=== PATIENT | male | born 1960 | race Asian ===

== ENCOUNTER → 2016-12-13 | Outpatient (CLI) | payer MEDICARE, OTHER ==
[~2016-12-13] MED LIST: AMLO2.5T PO; ASPI81 PO; ATOR20TA86 PO; CINN500C4 PO; FERR-89 PO; FISH1CAP49 PO; METO-323 PO; REPA2 PO; SEVEC800 PO; VITAD1000 PO
[2016-12-13 09:11] LABS: BASOPHILS % (AUTO) 0.5 % (0.0-2.0); EOSINOPHILS % (AUTO) 6.8 % (1.0-6.0); HEMATOCRIT 37.7 % (41-53); HEMOGLOBIN 12.2 g/dL (13.5-17.5); LYMPHOCYTES % (AUTO) 20.5 % (22.0-44.0); MEAN CORPUSCULAR HEMOGLOBIN 33.5 pg (26.0-34.0); MEAN CORPUSCULAR HGB CONC 32.3 G/dL (31.0-37.0); MEAN CORPUSCULAR VOLUME 104 fL (80-100); MONOCYTES # (AUTO) 0.4 K/uL (0.1-1.0); NEUTROPHILS # (AUTO) 3.1 K/uL (1.8-7.7); NEUTROPHILS % (AUTO) 64.2 % (40.0-70.0); PLATELET COUNT (AUTO) 166 K/uL (150-450); RED BLOOD CELL COUNT(AUTO) 3.64 MIL/uL (4.50-5.90); RED CELL DISTRIBUTION WIDTH 15.3 % (11.5-14.5); WHITE BLOOD COUNT (AUTO) 4.8 K/uL (4.5-11.0)
[2016-12-13 09:12] LABS: RBC MORPHOLOGY COMMENT ABNORMAL RBC MORPH
[2016-12-13 09:37] LABS: HEMOGLOBIN A1C 7.3 % (4.5-6.2)
[2016-12-13 09:43] LABS: ALBUMIN 3.9 g/dL (3.4-5.0); BILIRUBIN,TOTAL 0.8 mg/dL (0.1-1.0); CALCIUM, TOTAL 8.6 mg/dL (8.8-10.5); CHOL/HDL RATIO 1.9 (4.2-7.3); CREATININE 8.92 mg/dL (0.60-1.30); MAGNESIUM 2.9 mg/dL (1.80-2.40); POTASSIUM 4.2 mmol/L (3.5-5.1); THYROID STIMULATING HORMONE 0.94 uIU/mL (0.36-3.74); TOTAL PROTEIN, SERUM 7.8 g/dL (6.4-8.2)
== END | disposition home or self-care (01) ==
LOC: LABPV 08:08
PROVIDERS: ATTEND Internal Medicine Cardiovascular Disease
DX: I11.9 Hypertensive heart disease without heart failure (principal); I50.9 Heart failure, unspecified; E11.8 Type 2 diabetes mellitus with unspecified complications; R73.09 Other abnormal glucose; E55.9 Vitamin D deficiency, unspecified
CPT/HCPCS: 82306; 83036; 83735; 84439; 84443

== ENCOUNTER → 2017-01-23 | Outpatient (CLI) | payer MEDICARE, OTHER ==
[2017-01-23 12:33] LABS: BASOPHILS % (AUTO) 0.5 % (0.0-2.0); EOSINOPHILS % (AUTO) 5.4 % (1.0-6.0); HEMATOCRIT 37.3 % (41-53); HEMOGLOBIN 11.9 g/dL (13.5-17.5); LYMPHOCYTES % (AUTO) 16.5 % (22.0-44.0); MEAN CORPUSCULAR HEMOGLOBIN 33.7 pg (26.0-34.0); MEAN CORPUSCULAR HGB CONC 31.8 G/dL (31.0-37.0); MEAN CORPUSCULAR VOLUME 106 fL (80-100); MONOCYTES # (AUTO) 0.5 K/uL (0.1-1.0); MONOCYTES % (AUTO) 8.9 % (2.0-9.0); NEUTROPHILS % (AUTO) 68.7 % (40.0-70.0); PLATELET COUNT (AUTO) 167 K/uL (150-450); RED BLOOD CELL COUNT(AUTO) 3.52 MIL/uL (4.50-5.90); RED CELL DISTRIBUTION WIDTH 16.8 % (11.5-14.5); WHITE BLOOD COUNT (AUTO) 5.8 K/uL (4.5-11.0)
[2017-01-23 12:41] LABS: RBC MORPHOLOGY COMMENT ABNORMAL RBC MORPH
[2017-01-23 12:50] LABS: BILIRUBIN,TOTAL 0.9 mg/dL (0.1-1.0); CALCIUM, TOTAL 8.2 mg/dL (8.8-10.5); CHOL/HDL RATIO 1.9 (4.2-7.3); CREATININE 7.82 mg/dL (0.60-1.30); POTASSIUM 4.7 mmol/L (3.5-5.1); TOTAL PROTEIN, SERUM 7.5 g/dL (6.4-8.2)
== END | disposition home or self-care (01) ==
LOC: LABPV 10:05
PROVIDERS: ATTEND Family Medicine
DX: I12.0 Hypertensive chronic kidney disease with stage 5 chronic kidney disease or end stage renal disease (principal); E11.22 Type 2 diabetes mellitus with diabetic chronic kidney disease; N18.6 End stage renal disease; I25.10 Atherosclerotic heart disease of native coronary artery without angina pectoris; E26.9 Hyperaldosteronism, unspecified
CPT/HCPCS: 82306

== ENCOUNTER → 2017-02-13 | Outpatient (CLI) | payer MEDICARE, OTHER | END | disposition home or self-care (01) | LOC: RADPV 10:36 | PROVIDERS: ATTEND Internal Medicine Cardiovascular Disease | DX: I11.0 Hypertensive heart disease with heart failure (principal); I50.9 Heart failure, unspecified; J98.11 Atelectasis; E11.8 Type 2 diabetes mellitus with unspecified complications; Z95.1 Presence of aortocoronary bypass graft | CPT/HCPCS: 71020 ==

== ENCOUNTER → 2017-03-29 | Outpatient (CLI) | payer MEDICARE, OTHER ==
[2017-03-29 11:02] LABS: BASOPHILS % (AUTO) 0.8 % (0.0-2.0); EOSINOPHILS % (AUTO) 3.5 % (1.0-6.0); HEMATOCRIT 38.6 % (41-53); LYMPHOCYTES # (AUTO) 1.1 K/uL (1.0-4.8); LYMPHOCYTES % (AUTO) 20.5 % (22.0-44.0); MEAN CORPUSCULAR HEMOGLOBIN 34.7 pg (26.0-34.0); MEAN CORPUSCULAR HGB CONC 33.5 G/dL (31.0-37.0); MEAN CORPUSCULAR VOLUME 103 fL (80-100); MONOCYTES # (AUTO) 0.4 K/uL (0.1-1.0); MONOCYTES % (AUTO) 6.8 % (2.0-9.0); NEUTROPHILS # (AUTO) 3.8 K/uL (1.8-7.7); NEUTROPHILS % (AUTO) 68.4 % (40.0-70.0); PLATELET COUNT (AUTO) 145 K/uL (150-450); RED BLOOD CELL COUNT(AUTO) 3.74 MIL/uL (4.50-5.90); RED CELL DISTRIBUTION WIDTH 14.2 % (11.5-14.5); WHITE BLOOD COUNT (AUTO) 5.5 K/uL (4.5-11.0)
[2017-03-29 11:14] LABS: ALBUMIN 4.3 g/dL (3.4-5.0); BILIRUBIN,TOTAL 0.9 mg/dL (0.1-1.0); CALCIUM, TOTAL 9.1 mg/dL (8.8-10.5); CHOL/HDL RATIO 1.8 (4.2-7.3); CREATININE 8.13 mg/dL (0.60-1.30); POTASSIUM 4.6 mmol/L (3.5-5.1); TOTAL PROTEIN, SERUM 7.6 g/dL (6.4-8.2)
[2017-03-29 17:11] LABS: HEMOGLOBIN A1C 6.5 % (4.5-6.2)
== END | disposition home or self-care (01) ==
LOC: LABPV 08:32
PROVIDERS: ATTEND Family Medicine
DX: E11.22 Type 2 diabetes mellitus with diabetic chronic kidney disease (principal); N18.6 End stage renal disease; D50.8 Other iron deficiency anemias; I25.10 Atherosclerotic heart disease of native coronary artery without angina pectoris
CPT/HCPCS: 83036

== ENCOUNTER 2017-05-23 04:03 | Inpatient (IN) | payer MEDICARE, OTHER ==
[~2017-05-23] VITALS: Ht 170.2 cm; Wt 58.2 kg
[2017-05-23] VITALS (17 sets, daily range): BP systolic 90–135; BP diastolic 43–85
[~2017-05-23 04:03] MED LIST changes: -METO-323 PO; +METO25XL PO
[2017-05-23 04:17] LABS: GLUCOSE,POINT OF CARE 252 MG/DL (70-110)
[2017-05-23 04:57] LABS: BASOPHILS % (AUTO) 0.1 % (0.0-2.0); EOSINOPHILS % (AUTO) 0.1 % (1.0-6.0); LYMPHOCYTES # (AUTO) 0.6 K/uL (1.0-4.8); LYMPHOCYTES % (AUTO) 3.5 % (22.0-44.0); MEAN CORPUSCULAR HEMOGLOBIN 34.2 pg (26.0-34.0); MEAN CORPUSCULAR HGB CONC 33.5 G/dL (31.0-37.0); MEAN CORPUSCULAR VOLUME 102 fL (80-100); MONOCYTES # (AUTO) 0.3 K/uL (0.1-1.0); MONOCYTES % (AUTO) 1.6 % (2.0-9.0); NEUTROPHILS # (AUTO) 17.8 K/uL (1.8-7.7); PLATELET COUNT (AUTO) 285 K/uL (150-450); RED BLOOD CELL COUNT(AUTO) 2.01 MIL/uL (4.50-5.90); RED CELL DISTRIBUTION WIDTH 15.1 % (11.5-14.5); WHITE BLOOD COUNT (AUTO) 18.8 K/uL (4.5-11.0)
[2017-05-23 05:00] LABS: NEUTROPHILS % (AUTO) 94.7 % (40.0-70.0)
[2017-05-23] MEDS ORDERED: ACETAMINOPHEN 500 MG TABLET PO ONE ×2 (05:00→05:45)
[2017-05-23] MEDS ORDERED: PIPERACILLIN/TAZO 3.375 GM/D5W 50 ML IV ONE (05:00)
[2017-05-23] MEDS ORDERED: ONDANSETRON HCL 4 MG/2 ML VIAL IVP ONE (05:00)
[2017-05-23] MEDS ORDERED: SODIUM CHLORIDE 0.9% 1,000 ML IV ONE (05:00)
[2017-05-23 05:02] LABS: HEMOGLOBIN 6.9 g/dL (13.5-17.5)
[2017-05-23 05:03] LABS: HEMATOCRIT 20.5 % (41-53)
[2017-05-23 05:06] LABS: INR 1.4 (0.9-1.1); PROTHROMBIN TIME 14.7 SEC (9.4-11.6)
[2017-05-23 05:09] LABS: ANION GAP 10 mmol/L (8-16); CALCIUM, TOTAL 7.7 mg/dL (8.8-10.5); CARBON DIOXIDE 31 mmol/L (22-29); CHLORIDE 92 mmol/L (98-107); CREATININE 8.38 mg/dL (0.60-1.30); GLOMERULAR FILTR. RATE CALC 7 mL/min (>60); POTASSIUM 3.1 mmol/L (3.5-5.1); SODIUM SERUM 133 mmol/L (136-145); UREA NITROGEN, BLOOD 39 mg/dL (7-18)
[2017-05-23 05:11] LABS: ALANINE AMINOTRANSFERASE 17 U/L (12-78); ASPARTATE AMINOTRANSFERASE 14 U/L (15-37); BILIRUBIN,TOTAL 1.5 mg/dL (0.1-1.0)
[2017-05-23 05:12] LABS: ALBUMIN 2.6 g/dL (3.4-5.0); CREATINE KINASE, TOTAL 54 U/L (39-308); TOTAL PROTEIN, SERUM 6.5 g/dL (6.4-8.2)
[2017-05-23 05:14] LABS: B-TYPE NATRIURETIC PEPTIDE 2100 pg/mL (0-100)
[2017-05-23] MEDS ORDERED: ACETAMINOPHEN 325 MG TABLET PO PRN ×2 (05:30→21:45)
[2017-05-23] MEDS ORDERED: 0.9% SODIUM CHLORIDE 10 ML SYRINGE IVP PRN (05:30)
[2017-05-23] MEDS ORDERED: ONDANSETRON HCL 4 MG/2 ML VIAL IVP PRN (05:30)
[2017-05-23] MEDS ORDERED: CILO100T PO (05:35)
[2017-05-23 05:38] LABS: INFLUENZA TYPE B NEGATIVE FOR TYPE B (NEGATIVE)
[2017-05-23] MEDS ORDERED: DiphenhydrAMINE HCL 25 MG CAPSULE PO ONE (05:45)
[2017-05-23] MEDS ORDERED: SODIUM CHLORIDE 0.9% 500 ML IV ONE (06:05)
[2017-05-23] MEDS ORDERED: SODIUM CHLORIDE 0.9% 100 ML ONE (07:46)
[2017-05-23] MEDS ORDERED: PNEUMOCOCCAL VACCINE POLYVALENT 0.5 ML VIAL [PPSV23] IM ONE (10:30)
[2017-05-23] MEDS: PANTOPRAZOLE SODIUM 40 MG/VIAL IVP SCH ×2 (13:30→20:40)
[2017-05-23] MEDS ORDERED: SODIUM CHLORIDE 0.9% 250 ML IV ONE (13:37)
[2017-05-23 15:42] LABS: ADD UA MICROSCOPIC YES; APPEARANCE,URINE TURBID (CLEAR); GLUCOSE, URINE (UA) 250 mg/dL (NEGATIVE); KETONES,URINE TRACE mg/dL (NEGATIVE); LEUKOCYTE ESTERASE ,URINE MODERATE (NEGATIVE); OCCULT BLOOD,URINE LARGE (NEGATIVE); PH,URINE 5.5 (5.0-8.0); PROTEIN,URINE SEE CONFIRM (NEGATIVE)
[2017-05-23 15:52] LABS: SULFOSALICYLIC ACID,URINE 4+ (Negative)
[2017-05-23 15:54] LABS: SQUAMOUS EPITHELIAL CELL,UR Few /LPF (None Seen)
[2017-05-23 15:55] LABS: WBC,URINE >100 /HPF (0-5)
[2017-05-23 15:56] LABS: FINE GRANULAR CASTS,URINE 0-2 /LPF (None Seen)
[2017-05-23] MEDS: CefTRIAXone 1 GM/DEXTROSE 50 ML IV SCH (22:20)
[2017-05-24 03:50] VITALS: BP 132/72
[2017-05-24 06:19] LABS: BASOPHILS % (AUTO) 0.4 % (0.0-2.0); EOSINOPHILS % (AUTO) 0.5 % (1.0-6.0); HEMATOCRIT 27.2 % (41-53); HEMOGLOBIN 9.1 g/dL (13.5-17.5); LYMPHOCYTES % (AUTO) 7.8 % (22.0-44.0); MEAN CORPUSCULAR HEMOGLOBIN 33.2 pg (26.0-34.0); MEAN CORPUSCULAR HGB CONC 33.5 G/dL (31.0-37.0); MEAN CORPUSCULAR VOLUME 99 fL (80-100); MONOCYTES # (AUTO) 1.7 K/uL (0.1-1.0); MONOCYTES % (AUTO) 13.2 % (2.0-9.0); NEUTROPHILS # (AUTO) 9.8 K/uL (1.8-7.7); NEUTROPHILS % (AUTO) 78.1 % (40.0-70.0); PLATELET COUNT (AUTO) 248 K/uL (150-450); RED BLOOD CELL COUNT(AUTO) 2.74 MIL/uL (4.50-5.90); RED CELL DISTRIBUTION WIDTH 18.9 % (11.5-14.5); WHITE BLOOD COUNT (AUTO) 12.6 K/uL (4.5-11.0)
[2017-05-24 07:32] VITALS: BP 141/74
[2017-05-24] MEDS: PANTOPRAZOLE SODIUM 40 MG/VIAL IVP SCH ×2 (08:08→20:36)
[2017-05-24 08:28] LABS: RBC MORPHOLOGY COMMENT ABNORMAL RBC MORPH
[2017-05-24] MEDS ORDERED: SODIUM CHLORIDE 0.9% 2,000 ML IV ONE (08:29)
[2017-05-24] MEDS ORDERED: SODIUM CHLORIDE 0.9% 1,000 ML IV ONE ×2 (10:58→11:00)
[2017-05-24 11:27] VITALS: BP 147/79
[2017-05-24] MEDS ORDERED: MIDAZOLAM HCL 5 MG/ML VIAL ONE (12:13)
[2017-05-24] MEDS ORDERED: FentaNYL CITRATE-PF 100 MCG/2 ML VIAL ONE (12:13)
[2017-05-24 13:42] VITALS: BP 123/72
[2017-05-24] MEDS: VITAMIN B COMP/VIT C/FOLIC ACID CAPSULE PO SCH (15:18)
[2017-05-24] MEDS ORDERED: IPRATROPIUM BROMIDE 0.5 MG/2.5 ML NEB SOLUTION NEB PRN (17:30)
[2017-05-24] MEDS ORDERED: BISACODYL 10 MG RECTAL RECTAL SUPPOSITORY PR PRN (17:30)
[2017-05-24] MEDS ORDERED: MAGNESIUM HYDROXIDE SUSPENSION 30 ML UDCUP PO PRN (17:30)
[2017-05-24] MEDS ORDERED: HYDROCODONE/ACETAMINOPHEN 5-325 MG TABLET PO PRN (17:30)
[2017-05-24] MEDS ORDERED: ALBUTEROL SULFATE 2.5 MG/0.5 ML NEB SOLUTION NEB PRN (17:30)
[2017-05-24] MEDS ORDERED: MORPHINE SULFATE 2 MG/ML SYRINGE IVP PRN (17:30)
[2017-05-24] MEDS ORDERED: ONDANSETRON HCL 4 MG/2 ML VIAL IVP PRN (17:30)
[2017-05-24] MEDS ORDERED: ACETAMINOPHEN 325 MG TABLET PO PRN (17:30)
[2017-05-24] MEDS ORDERED: ZOLPIDEM TARTRATE 5 MG TABLET PO PRN (17:30)
[2017-05-24] MEDS: CILOSTAZOL 100 MG TABLET PO SCH (18:19)
[2017-05-24] MEDS: SEVELAMER CARBONATE 800 MG TABLET PO SCH (18:19)
[2017-05-24] MEDS: REPAGLINIDE 2 MG TABLET PO SCH (18:21)
[2017-05-24 20:27] VITALS: BP 131/66
[2017-05-24] MEDS: ATORVASTATIN CALCIUM 20 MG TABLET PO SCH (20:35)
[2017-05-24] MEDS: DOCUSATE SODIUM 100 MG CAPSULE PO SCH (20:36)
[2017-05-24] MEDS: CHOLECALCIFEROL (VIT D3) 1,000 UNITS TABLET PO SCH (20:36)
[2017-05-24] MEDS: CefTRIAXone 1 GM/DEXTROSE 50 ML IV SCH (21:20)
[2017-05-25] VITALS (7 sets, daily range): BP systolic 109–151; BP diastolic 56–85
[2017-05-25] MEDS: CILOSTAZOL 100 MG TABLET PO SCH ×2 (06:08→18:09)
[2017-05-25 06:56] LABS: ALBUMIN 2.6 g/dL (3.4-5.0); BILIRUBIN,TOTAL 0.9 mg/dL (0.1-1.0); CREATININE 5.43 mg/dL (0.60-1.30); POTASSIUM 4.1 mmol/L (3.5-5.1); TOTAL PROTEIN, SERUM 6.8 g/dL (6.4-8.2)
[2017-05-25 07:09] LABS: BASOPHILS % (AUTO) 0.3 % (0.0-2.0); EOSINOPHILS % (AUTO) 1.1 % (1.0-6.0); HEMATOCRIT 29.8 % (41-53); LYMPHOCYTES # (AUTO) 0.7 K/uL (1.0-4.8); LYMPHOCYTES % (AUTO) 6.9 % (22.0-44.0); MEAN CORPUSCULAR HEMOGLOBIN 32.9 pg (26.0-34.0); MEAN CORPUSCULAR HGB CONC 33.5 G/dL (31.0-37.0); MEAN CORPUSCULAR VOLUME 98 fL (80-100); MONOCYTES # (AUTO) 0.4 K/uL (0.1-1.0); MONOCYTES % (AUTO) 4.3 % (2.0-9.0); NEUTROPHILS # (AUTO) 9.1 K/uL (1.8-7.7); NEUTROPHILS % (AUTO) 87.4 % (40.0-70.0); PLATELET COUNT (AUTO) 283 K/uL (150-450); RED BLOOD CELL COUNT(AUTO) 3.03 MIL/uL (4.50-5.90); RED CELL DISTRIBUTION WIDTH 18.2 % (11.5-14.5); WHITE BLOOD COUNT (AUTO) 10.4 K/uL (4.5-11.0)
[2017-05-25] MEDS: SEVELAMER CARBONATE 800 MG TABLET PO SCH ×3 (08:00→18:09)
[2017-05-25] MEDS: DOCUSATE SODIUM 100 MG CAPSULE PO SCH ×2 (08:00→20:24)
[2017-05-25] MEDS: CHOLECALCIFEROL (VIT D3) 1,000 UNITS TABLET PO SCH ×2 (08:01→20:23)
[2017-05-25 08:27] LABS: RBC MORPHOLOGY COMMENT ABNORMAL RBC MORPH
[2017-05-25] MEDS ORDERED: EPOETIN ALFA 10,000 UNITS/ML VIAL SQ SCH (09:00)
[2017-05-25] MEDS ORDERED: PANTOPRAZOLE SODIUM 40 MG/VIAL IVP SCH (09:00)
[2017-05-25] MEDS: PANTOPRAZOLE SODIUM 40 MG/VIAL IVP SCH ×2 (09:00→20:24)
[2017-05-25] MEDS ORDERED: DiphenhydrAMINE HCL 50 MG/ML VIAL IVP PRN (11:45)
[2017-05-25] MEDS ORDERED: ALBUMIN HUMAN 25%-12.5GM/50ML IV BOTTLE IV PRN (11:45)
[2017-05-25] MEDS ORDERED: MANNITOL 25%-12.5 GM/50 ML VIAL IVP PRN (11:45)
[2017-05-25] MEDS ORDERED: LIDOCAINE HCL/PF 1% 2 ML VIAL ID PRN (11:45)
[2017-05-25] MEDS: REPAGLINIDE 2 MG TABLET PO SCH ×2 (12:15→18:09)
[2017-05-25] MEDS: VITAMIN B COMP/VIT C/FOLIC ACID CAPSULE PO SCH (12:16)
[2017-05-25] MEDS: AmLODIPine BESYLATE 2.5 MG TABLET PO SCH (12:16)
[2017-05-25] MEDS: ATORVASTATIN CALCIUM 20 MG TABLET PO SCH (20:23)
[2017-05-25] MEDS: CefTRIAXone 1 GM/DEXTROSE 50 ML IV SCH (20:31)
[2017-05-26 00:08] VITALS: BP 101/63
[2017-05-26 05:01] VITALS: BP 149/77
[2017-05-26 05:15] LABS: BASOPHILS # (AUTO) 0.01 K/uL (0.00-0.20); BASOPHILS % (AUTO) 0.1 % (0.0-2.0); EOSINOPHILS % (AUTO) 0.88 % (1.0-6.0); HEMATOCRIT 26.7 % (41-53); HEMOGLOBIN 8.8 g/dL (13.5-17.5); LYMPHOCYTES # (AUTO) 1.2 K/uL (1.0-4.8); LYMPHOCYTES % (AUTO) 10.4 % (22.0-44.0); MEAN CORPUSCULAR HGB CONC 33.1 G/dL (31.0-37.0); MEAN CORPUSCULAR VOLUME 99 fL (80-100); MONOCYTES % (AUTO) 9.2 % (2.0-9.0); NEUTROPHILS % (AUTO) 79.5 % (40.0-70.0); PLATELET COUNT (AUTO) 236 K/uL (150-450); RED BLOOD CELL COUNT(AUTO) 2.68 MIL/uL (4.50-5.90); RED CELL DISTRIBUTION WIDTH 17.9 % (11.5-14.5); WHITE BLOOD COUNT (AUTO) 11.3 K/uL (4.5-11.0)
[2017-05-26 05:29] LABS: ALBUMIN 2.4 g/dL (3.4-5.0); BILIRUBIN,TOTAL 0.6 mg/dL (0.1-1.0); CALCIUM, TOTAL 8.1 mg/dL (8.8-10.5); CREATININE 4.79 mg/dL (0.60-1.30); POTASSIUM 4.1 mmol/L (3.5-5.1); TOTAL PROTEIN, SERUM 6.4 g/dL (6.4-8.2)
[2017-05-26] MEDS: CILOSTAZOL 100 MG TABLET PO SCH ×2 (06:08→17:39)
[2017-05-26 07:10] LABS: RBC MORPHOLOGY COMMENT ABNORMAL RBC MORPH
[2017-05-26 08:02] VITALS: BP 157/92
[2017-05-26] MEDS: DOCUSATE SODIUM 100 MG CAPSULE PO SCH (08:45)
[2017-05-26] MEDS: CHOLECALCIFEROL (VIT D3) 1,000 UNITS TABLET PO SCH (08:47)
[2017-05-26] MEDS: REPAGLINIDE 2 MG TABLET PO SCH ×2 (08:48→17:39)
[2017-05-26] MEDS: PANTOPRAZOLE SODIUM 40 MG/VIAL IVP SCH (08:48)
[2017-05-26] MEDS: VITAMIN B COMP/VIT C/FOLIC ACID CAPSULE PO SCH (08:48)
[2017-05-26] MEDS: SEVELAMER CARBONATE 800 MG TABLET PO SCH ×3 (08:49→17:39)
[2017-05-26] MEDS: AmLODIPine BESYLATE 2.5 MG TABLET PO SCH (08:49)
[2017-05-26 11:41] VITALS: BP 149/85
[2017-05-26 15:48] VITALS: BP 146/87
[2017-05-26] MEDS ORDERED: LEVO250 PO (16:52)
[2017-05-26] MEDS: CefTRIAXone 1 GM/DEXTROSE 50 ML IV SCH (17:50)
== END 2017-05-26 18:45 | disposition home or self-care (01) | DRG 720 ==
LOC: EMS 04:05 → 5S 05:37
PROVIDERS: ADMIT Hospitalist; ATTEND Hospitalist
PROC: 30233N1 Transfusion of Nonautologous Red Blood Cells into Peripheral Vein, Percutaneous Approach (ICD-10-PCS; principal; 2017-05-23)
PROC: 5A1D60Z (ICD-10-PCS; 2017-05-23)
PROC: 0DJ08ZZ Inspection of Upper Intestinal Tract, Via Natural or Artificial Opening Endoscopic (ICD-10-PCS; 2017-05-24)
DX: A41.51 Sepsis due to Escherichia coli [E. coli] (principal); E11.22 Type 2 diabetes mellitus with diabetic chronic kidney disease; N18.6 End stage renal disease; I12.0 Hypertensive chronic kidney disease with stage 5 chronic kidney disease or end stage renal disease; D50.9 Iron deficiency anemia, unspecified; F17.210 Nicotine dependence, cigarettes, uncomplicated; N39.0 Urinary tract infection, site not specified; K21.0 Gastro-esophageal reflux disease with esophagitis; K44.9 Diaphragmatic hernia without obstruction or gangrene; K29.70 Gastritis, unspecified, without bleeding; E83.51 Hypocalcemia; E87.6 Hypokalemia; E78.5 Hyperlipidemia, unspecified; Z82.49 Family history of ischemic heart disease and other diseases of the circulatory system; Z83.3 Family history of diabetes mellitus; Z95.1 Presence of aortocoronary bypass graft; Z99.2 Dependence on renal dialysis; Z88.2 Allergy status to sulfonamides; Z89.422 Acquired absence of other left toe(s)
CPT/HCPCS: 82607; 82746; 82962; 83540; 83550; 83605; 86850; 86900; 86901; 86920; 87040; 87081; 87086; 87340; 87804; 90471; 90935; 93005; 96365; 96375; 99285; C9113; J0696; J0885; J2250; J2405; J2543; J3010; J7030; J7040; J7050; P9016

== ENCOUNTER → 2017-08-02 | Outpatient (CLI) | payer MEDICARE, OTHER ==
[~2017-08-02] MED LIST changes: +CILO100T PO; +LEVO250 PO
[2017-08-02 10:08] LABS: BASOPHILS % (AUTO) 0.8 % (0.0-2.0); EOSINOPHILS % (AUTO) 4.7 % (1.0-6.0); HEMATOCRIT 34.6 % (41-53); HEMOGLOBIN 11.7 g/dL (13.5-17.5); LYMPHOCYTES # (AUTO) 1.6 K/uL (1.0-4.8); LYMPHOCYTES % (AUTO) 25.8 % (22.0-44.0); MEAN CORPUSCULAR HEMOGLOBIN 32.6 pg (26.0-34.0); MEAN CORPUSCULAR HGB CONC 33.7 G/dL (31.0-37.0); MEAN CORPUSCULAR VOLUME 97 fL (80-100); MONOCYTES # (AUTO) 0.7 K/uL (0.1-1.0); MONOCYTES % (AUTO) 10.6 % (2.0-9.0); NEUTROPHILS # (AUTO) 3.7 K/uL (1.8-7.7); NEUTROPHILS % (AUTO) 58.1 % (40.0-70.0); PLATELET COUNT (AUTO) 164 K/uL (150-450); RED BLOOD CELL COUNT(AUTO) 3.57 MIL/uL (4.50-5.90); RED CELL DISTRIBUTION WIDTH 15.9 % (11.5-14.5); WHITE BLOOD COUNT (AUTO) 6.4 K/uL (4.5-11.0)
[2017-08-02 10:17] LABS: HEMOGLOBIN A1C 9.2 % (4.5-6.2)
[2017-08-02 10:18] LABS: ALBUMIN 3.9 g/dL (3.4-5.0); BILIRUBIN,TOTAL 0.6 mg/dL (0.1-1.0); CALCIUM, TOTAL 8.6 mg/dL (8.8-10.5); CHOL/HDL RATIO 1.6 (4.2-7.3); CREATININE 6.91 mg/dL (0.60-1.30); POTASSIUM 4.7 mmol/L (3.5-5.1)
== END | disposition home or self-care (01) ==
LOC: LABPV 08:41
PROVIDERS: ATTEND Family Medicine
DX: I12.0 Hypertensive chronic kidney disease with stage 5 chronic kidney disease or end stage renal disease (principal); E11.22 Type 2 diabetes mellitus with diabetic chronic kidney disease; N18.6 End stage renal disease; I25.10 Atherosclerotic heart disease of native coronary artery without angina pectoris; E78.4 Other hyperlipidemia; D50.8 Other iron deficiency anemias; Z99.2 Dependence on renal dialysis
CPT/HCPCS: 83036

== ENCOUNTER → 2017-11-01 | Outpatient (CLI) | payer MEDICARE, OTHER ==
[2017-11-01 10:10] LABS: BASOPHILS % (AUTO) 1.2 % (0.0-2.0); EOSINOPHILS % (AUTO) 6.7 % (1.0-6.0); HEMATOCRIT 39.2 % (41-53); HEMOGLOBIN 12.9 g/dL (13.5-17.5); LYMPHOCYTES # (AUTO) 1.2 K/uL (1.0-4.8); LYMPHOCYTES % (AUTO) 25.7 % (22.0-44.0); MEAN CORPUSCULAR HEMOGLOBIN 34.1 pg (26.0-34.0); MEAN CORPUSCULAR HGB CONC 32.8 G/dL (31.0-37.0); MEAN CORPUSCULAR VOLUME 104 fL (80-100); MONOCYTES # (AUTO) 0.6 K/uL (0.1-1.0); MONOCYTES % (AUTO) 11.9 % (2.0-9.0); NEUTROPHILS # (AUTO) 2.6 K/uL (1.8-7.7); NEUTROPHILS % (AUTO) 54.5 % (40.0-70.0); PLATELET COUNT (AUTO) 125 K/uL (150-450); RED BLOOD CELL COUNT(AUTO) 3.78 MIL/uL (4.50-5.90); RED CELL DISTRIBUTION WIDTH 15.2 % (11.5-14.5)
[2017-11-01 10:21] LABS: ALBUMIN 3.7 g/dL (3.4-5.0); CALCIUM, TOTAL 8.6 mg/dL (8.8-10.5); CHOL/HDL RATIO 3.1 (4.2-7.3); CREATININE 7.96 mg/dL (0.60-1.30); TOTAL PROTEIN, SERUM 7.8 g/dL (6.4-8.2)
[2017-11-01 10:49] LABS: HEMOGLOBIN A1C 10.2 % (4.5-6.2)
[2017-11-01 10:52] LABS: BILIRUBIN,TOTAL 0.6 mg/dL (0.1-1.0)
== END | disposition home or self-care (01) ==
LOC: LABPV 08:15
PROVIDERS: ATTEND Family Medicine
DX: E11.21 Type 2 diabetes mellitus with diabetic nephropathy (principal); E11.51 Type 2 diabetes mellitus with diabetic peripheral angiopathy without gangrene; E11.65 Type 2 diabetes mellitus with hyperglycemia; D50.8 Other iron deficiency anemias; I25.10 Atherosclerotic heart disease of native coronary artery without angina pectoris; E78.4 Other hyperlipidemia; Z79.899 Other long term (current) drug therapy
CPT/HCPCS: 82306; 83036

== ENCOUNTER → 2017-11-08 | Outpatient (CLI) | payer MEDICARE, OTHER ==
[2017-11-08 10:45] LABS: BASOPHILS % (AUTO) 0.7 % (0.0-2.0); EOSINOPHILS % (AUTO) 4.4 % (1.0-6.0); HEMOGLOBIN 12.5 g/dL (13.5-17.5); LYMPHOCYTES # (AUTO) 1.3 K/uL (1.0-4.8); LYMPHOCYTES % (AUTO) 22.5 % (22.0-44.0); MEAN CORPUSCULAR HEMOGLOBIN 34.1 pg (26.0-34.0); MEAN CORPUSCULAR HGB CONC 33.8 G/dL (31.0-37.0); MEAN CORPUSCULAR VOLUME 101 fL (80-100); MONOCYTES # (AUTO) 0.6 K/uL (0.1-1.0); MONOCYTES % (AUTO) 10.7 % (2.0-9.0); NEUTROPHILS # (AUTO) 3.5 K/uL (1.8-7.7); NEUTROPHILS % (AUTO) 61.7 % (40.0-70.0); PLATELET COUNT (AUTO) 142 K/uL (150-450); RED BLOOD CELL COUNT(AUTO) 3.67 MIL/uL (4.50-5.90); RED CELL DISTRIBUTION WIDTH 14.6 % (11.5-14.5)
[2017-11-08 11:09] LABS: ALBUMIN 3.7 g/dL (3.4-5.0); BILIRUBIN,TOTAL 0.6 mg/dL (0.1-1.0); CALCIUM, TOTAL 9.1 mg/dL (8.8-10.5); CHOL/HDL RATIO 3.8 (4.2-7.3); CREATININE 8.99 mg/dL (0.60-1.30); FREE T4 (FREE THYROXINE) 0.89 ng/dL (0.76-1.46); MAGNESIUM 2.6 mg/dL (1.80-2.40); POTASSIUM 5.1 mmol/L (3.5-5.1); THYROID STIMULATING HORMONE 1.27 uIU/mL (0.36-3.74)
[2017-11-08 11:31] LABS: HEMOGLOBIN A1C 9.1 % (4.5-6.2)
== END | disposition home or self-care (01) ==
LOC: LABPV 09:31
PROVIDERS: ATTEND Internal Medicine Cardiovascular Disease
DX: I11.0 Hypertensive heart disease with heart failure (principal); I50.9 Heart failure, unspecified; E11.8 Type 2 diabetes mellitus with unspecified complications; E55.9 Vitamin D deficiency, unspecified; D56.5 Hemoglobin E-beta thalassemia
CPT/HCPCS: 82306; 83036; 83735; 84439; 84443

== ENCOUNTER → 2017-11-22 | Outpatient (CLI) | payer MEDICARE, OTHER ==
[2017-11-22 11:05] LABS: EOSINOPHILS % (AUTO) 4.4 % (1.0-6.0); HEMATOCRIT 33.8 % (41-53); HEMOGLOBIN 11.1 g/dL (13.5-17.5); LYMPHOCYTES # (AUTO) 1.1 K/uL (1.0-4.8); LYMPHOCYTES % (AUTO) 22.8 % (22.0-44.0); MEAN CORPUSCULAR HEMOGLOBIN 34.2 pg (26.0-34.0); MEAN CORPUSCULAR VOLUME 104 fL (80-100); MONOCYTES # (AUTO) 0.5 K/uL (0.1-1.0); MONOCYTES % (AUTO) 9.7 % (2.0-9.0); NEUTROPHILS # (AUTO) 3.1 K/uL (1.8-7.7); NEUTROPHILS % (AUTO) 62.1 % (40.0-70.0); PLATELET COUNT (AUTO) 160 K/uL (150-450); RED BLOOD CELL COUNT(AUTO) 3.26 MIL/uL (4.50-5.90); RED CELL DISTRIBUTION WIDTH 15.6 % (11.5-14.5)
[2017-11-22 11:56] LABS: ERYTHROCYTE SEDIMENTATION RATE 30 MM/HR (0-15)
== END | disposition home or self-care (01) ==
LOC: MSR 09:44
PROVIDERS: ATTEND Podiatrist Foot & Ankle Surgery
DX: L97.522 Non-pressure chronic ulcer of other part of left foot with fat layer exposed (principal)
CPT/HCPCS: 85651

== ENCOUNTER → 2018-02-05 | Outpatient (CLI) | payer MEDICARE, OTHER ==
[2018-02-05 09:19] LABS: BASOPHILS % (AUTO) 0.6 % (0.0-2.0); EOSINOPHILS % (AUTO) 2.9 % (1.0-6.0); HEMATOCRIT 28.6 % (41-53); HEMOGLOBIN 9.7 g/dL (13.5-17.5); LYMPHOCYTES # (AUTO) 1.4 K/uL (1.0-4.8); LYMPHOCYTES % (AUTO) 21.7 % (22.0-44.0); MEAN CORPUSCULAR HEMOGLOBIN 33.7 pg (26.0-34.0); MEAN CORPUSCULAR VOLUME 99 fL (80-100); MONOCYTES # (AUTO) 0.8 K/uL (0.1-1.0); MONOCYTES % (AUTO) 13.2 % (2.0-9.0); NEUTROPHILS # (AUTO) 3.9 K/uL (1.8-7.7); NEUTROPHILS % (AUTO) 61.6 % (40.0-70.0); PLATELET COUNT (AUTO) 136 K/uL (150-450); RED BLOOD CELL COUNT(AUTO) 2.89 MIL/uL (4.50-5.90); RED CELL DISTRIBUTION WIDTH 14.3 % (11.5-14.5)
[2018-02-05 09:28] LABS: HEMOGLOBIN A1C 9.3 % (4.5-6.2)
[2018-02-05 09:46] LABS: ALBUMIN 3.3 g/dL (3.4-5.0); BILIRUBIN,TOTAL 0.8 mg/dL (0.1-1.0); CALCIUM, TOTAL 8.3 mg/dL (8.8-10.5); CHOL/HDL RATIO 2.5 (4.2-7.3); CREATININE 8.92 mg/dL (0.60-1.30); POTASSIUM 4.1 mmol/L (3.5-5.1); TOTAL PROTEIN, SERUM 7.3 g/dL (6.4-8.2)
== END | disposition home or self-care (01) ==
LOC: LABPV 07:52
PROVIDERS: ATTEND Family Medicine
DX: I12.0 Hypertensive chronic kidney disease with stage 5 chronic kidney disease or end stage renal disease (principal); E11.22 Type 2 diabetes mellitus with diabetic chronic kidney disease; N18.6 End stage renal disease; I25.10 Atherosclerotic heart disease of native coronary artery without angina pectoris
CPT/HCPCS: 82043; 82570; 83036

== ENCOUNTER 2018-04-09 06:33 | Day surgery (SDC) | payer MEDICARE, OTHER ==
[~2018-04-09] VITALS: Ht 170.2 cm; Wt 63.6 kg
[2018-04-09] MEDS ORDERED: SODIUM CHLORIDE 0.9% 1,000 ML IV ONE ×2 (07:03→07:30)
[2018-04-09 07:30] LABS: BASOPHILS % (AUTO) 0.9 % (0.0-2.0); EOSINOPHILS % (AUTO) 4.1 % (1.0-6.0); HEMATOCRIT 32.8 % (41-53); HEMOGLOBIN 11.4 g/dL (13.5-17.5); LYMPHOCYTES # (AUTO) 1.4 K/uL (1.0-4.8); LYMPHOCYTES % (AUTO) 25.4 % (22.0-44.0); MEAN CORPUSCULAR HEMOGLOBIN 36.1 pg (26.0-34.0); MEAN CORPUSCULAR HGB CONC 34.7 G/dL (31.0-37.0); MEAN CORPUSCULAR VOLUME 104 fL (80-100); MONOCYTES # (AUTO) 0.6 K/uL (0.1-1.0); MONOCYTES % (AUTO) 9.7 % (2.0-9.0); NEUTROPHILS # (AUTO) 3.4 K/uL (1.8-7.7); NEUTROPHILS % (AUTO) 59.9 % (40.0-70.0); PLATELET COUNT (AUTO) 133 K/uL (150-450); RED BLOOD CELL COUNT(AUTO) 3.15 MIL/uL (4.50-5.90); RED CELL DISTRIBUTION WIDTH 13.9 % (11.5-14.5)
[2018-04-09 07:37] LABS: CALCIUM, TOTAL 8.3 mg/dL (8.8-10.5); CREATININE 8.53 mg/dL (0.60-1.30); POTASSIUM 3.8 mmol/L (3.5-5.1)
[2018-04-09 07:39] LABS: PROTHROMBIN TIME 10.8 SEC (9.4-11.6)
[2018-04-09] MEDS ORDERED: ROPI0.255 PO (07:50)
[2018-04-09] MEDS ORDERED: CLOP75 PO (07:50)
[2018-04-09] MEDS ORDERED: METO25XL PO (07:50)
[2018-04-09] MEDS ORDERED: VITA1CAP17 PO (07:50)
[2018-04-09] MEDS ORDERED: ASPI-1182 PO (07:50)
[2018-04-09] MEDS ORDERED: AMLO-511 PO (07:50)
[2018-04-09] MEDS ORDERED: METF500T6 PO (07:50)
[2018-04-09] MEDS ORDERED: GLIP10 PO (07:50)
[2018-04-09] MEDS ORDERED: SEVEC800 PO (07:50)
[2018-04-09] MEDS ORDERED: LIDOCAINE HCL/PF 1% 30 ML VIAL ONE (08:48)
[2018-04-09] MEDS ORDERED: SODIUM BICARBONATE 50 MEQ/50 ML VIAL ONE (08:48)
[2018-04-09] MEDS ORDERED: IOHEXOL 300 MG/ML 150 ML VIAL ONE (08:49)
[2018-04-09] MEDS ORDERED: HEPARIN SODIUM 1000 UNITS/NS 1,000 ML ONE (08:49)
[2018-04-09] MEDS ORDERED: HEPARIN SODIUM,PORCINE 1,000 UNITS/ML 10 ML VIAL ONE (08:52)
[2018-04-09 09:25] VITALS: BP 176/54
[2018-04-09] MEDS ORDERED: HEPARIN SODIUM 2,000 UNITS in HEPARIN SODIUM 1000 UNITS/NS 1,000 ML IARTER ONE ×2 (09:45→09:49)
[2018-04-09] MEDS ORDERED: IOHEXOL 300 MG/ML 150 ML VIAL IARTER ONE ×2 (09:45→10:00)
[2018-04-09] MEDS ORDERED: LIDOCAINE 1% 30 ML/SOD BICARB 8.4% 4 ML SQ ONE ×2 (09:45→10:00)
[2018-04-09] MEDS ORDERED: IOHEXOL 300 MG/ML 100 ML VIAL ONE (09:50)
[2018-04-09] MEDS ORDERED: IOHEXOL 300 MG/ML 100 ML VIAL IARTER ONE (10:00)
[2018-04-09 10:06] VITALS: BP 164/56
== END 2018-04-09 14:20 | disposition home or self-care (01) ==
LOC: CATHLAB 06:33
PROVIDERS: ATTEND Internal Medicine Cardiovascular Disease
DX: I25.810 Atherosclerosis of coronary artery bypass graft(s) without angina pectoris (principal); I13.2 Hypertensive heart and chronic kidney disease with heart failure and with stage 5 chronic kidney disease, or end stage renal disease; E11.22 Type 2 diabetes mellitus with diabetic chronic kidney disease; N18.6 End stage renal disease; I50.9 Heart failure, unspecified; K21.9 Gastro-esophageal reflux disease without esophagitis; E11.40 Type 2 diabetes mellitus with diabetic neuropathy, unspecified; E55.9 Vitamin D deficiency, unspecified; E11.51 Type 2 diabetes mellitus with diabetic peripheral angiopathy without gangrene; E78.00 Pure hypercholesterolemia, unspecified; G20 Parkinson's disease; J44.9 Chronic obstructive pulmonary disease, unspecified; F12.21 Cannabis dependence, in remission; F10.21 Alcohol dependence, in remission; Z99.2 Dependence on renal dialysis; Z79.82 Long term (current) use of aspirin; Z95.1 Presence of aortocoronary bypass graft; Z87.891 Personal history of nicotine dependence; Z89.429 Acquired absence of other toe(s), unspecified side; Z79.84 Long term (current) use of oral hypoglycemic drugs; Z88.2 Allergy status to sulfonamides; Z79.1 Long term (current) use of non-steroidal anti-inflammatories (NSAID); Z86.14 Personal history of Methicillin resistant Staphylococcus aureus infection; Z88.8 Allergy status to other drugs, medicaments and biological substances; Z79.899 Other long term (current) drug therapy; Z98.890 Other specified postprocedural states; Z83.518 Family history of other specified eye disorder; Z82.49 Family history of ischemic heart disease and other diseases of the circulatory system; Z82.5 Family history of asthma and other chronic lower respiratory diseases; Z84.89 Family history of other specified conditions; Z83.42 Family history of familial hypercholesterolemia
CPT/HCPCS: 36415; 80048; 85025; 85610; 85730; 93005; 93459; 99152; 99153; C1760; J1644 ×2; J3490 ×2; J7030; Q9967 ×2

== ENCOUNTER → 2018-06-18 | Outpatient (CLI) | payer MEDICARE, OTHER ==
[~2018-06-18] MED LIST changes: +AMLO-511 PO; -AMLO2.5T PO; +ASPI-1182 PO; -ASPI81 PO; -CILO100T PO; -CINN500C4 PO; +CLOP75 PO; -FERR-89 PO; -FISH1CAP49 PO; +GLIP10 PO; -LEVO250 PO; +METF-960 PO; +ROPI0.257 PO; +VITA1CAP17 PO; -VITAD1000 PO
[2018-06-18 11:59] LABS: BASOPHILS % (AUTO) 0.6 % (0.0-2.0); EOSINOPHILS % (AUTO) 1.4 % (1.0-6.0); HEMATOCRIT 33.8 % (41-53); HEMOGLOBIN 11.3 g/dL (13.5-17.5); MEAN CORPUSCULAR HEMOGLOBIN 35.1 pg (26.0-34.0); MEAN CORPUSCULAR HGB CONC 33.4 G/dL (31.0-37.0); MEAN CORPUSCULAR VOLUME 105 fL (80-100); MONOCYTES # (AUTO) 0.6 K/uL (0.1-1.0); MONOCYTES % (AUTO) 11.1 % (2.0-9.0); NEUTROPHILS % (AUTO) 69.9 % (40.0-70.0); PLATELET COUNT (AUTO) 118 K/uL (150-450); RED BLOOD CELL COUNT(AUTO) 3.22 MIL/uL (4.50-5.90); RED CELL DISTRIBUTION WIDTH 14.8 % (11.5-14.5)
[2018-06-18 12:06] LABS: HEMOGLOBIN A1C 6.7 % (4.5-6.2)
[2018-06-18 12:14] LABS: ALBUMIN 3.6 g/dL (3.4-5.0); BILIRUBIN,TOTAL 1.4 mg/dL (0.1-1.0); CALCIUM, TOTAL 7.9 mg/dL (8.8-10.5); CHOL/HDL RATIO 2.4 (4.2-7.3); CREATININE 9.23 mg/dL (0.60-1.30); FREE T4 (FREE THYROXINE) 0.92 ng/dL (0.76-1.46); MAGNESIUM 2.3 mg/dL (1.80-2.40); POTASSIUM 4.2 mmol/L (3.5-5.1); THYROID STIMULATING HORMONE 0.8 uIU/mL (0.36-3.74); TOTAL PROTEIN, SERUM 7.5 g/dL (6.4-8.2)
== END | disposition home or self-care (01) ==
LOC: LABPV 09:36
PROVIDERS: ATTEND Internal Medicine Cardiovascular Disease
DX: I11.0 Hypertensive heart disease with heart failure (principal); I50.9 Heart failure, unspecified; E11.8 Type 2 diabetes mellitus with unspecified complications; E55.9 Vitamin D deficiency, unspecified; D56.5 Hemoglobin E-beta thalassemia
CPT/HCPCS: 82306; 83036; 83735; 84439; 84443

== ENCOUNTER → 2018-09-24 | Outpatient (CLI) | payer MEDICARE, OTHER ==
[~2018-09-24] MED LIST changes: -AMLO-511 PO; -CLOP75 PO; +CLOP75TA17 PO; -GLIP10 PO; +MEDRONATE TC99M/UD<30 MCL ISOTOPE 1 EA INJ INJ ONE; -METF-960 PO; -REPA2 PO; -ROPI0.257 PO
== END | disposition home or self-care (01) ==
LOC: RADMN 08:35
PROVIDERS: ATTEND Podiatrist Foot & Ankle Surgery
DX: M86.9 Osteomyelitis, unspecified (principal); I13.2 Hypertensive heart and chronic kidney disease with heart failure and with stage 5 chronic kidney disease, or end stage renal disease; E11.22 Type 2 diabetes mellitus with diabetic chronic kidney disease; N18.5 Chronic kidney disease, stage 5; I50.9 Heart failure, unspecified; Z89.432 Acquired absence of left foot
CPT/HCPCS: 78315; A9503

== ENCOUNTER → 2018-12-10 | Outpatient (CLI) | payer MEDICARE, OTHER ==
[~2018-12-10] MED LIST changes: -CLOP75TA17 PO; +CLOP75TA3 PO; -MEDRONATE TC99M/UD<30 MCL ISOTOPE 1 EA INJ INJ ONE
[2018-12-10 13:00] LABS: BASOPHILS % (AUTO) 0.7 % (0.0-2.0); EOSINOPHILS % (AUTO) 3.3 % (1.0-6.0); HEMATOCRIT 35.7 % (41-53); HEMOGLOBIN 11.5 g/dL (13.5-17.5); LYMPHOCYTES # (AUTO) 0.7 K/uL (1.0-4.8); LYMPHOCYTES % (AUTO) 14.9 % (22.0-44.0); MEAN CORPUSCULAR HEMOGLOBIN 31.9 pg (26.0-34.0); MEAN CORPUSCULAR HGB CONC 32.2 G/dL (31.0-37.0); MEAN CORPUSCULAR VOLUME 99 fL (80-100); MONOCYTES # (AUTO) 0.7 K/uL (0.1-1.0); MONOCYTES % (AUTO) 14.1 % (2.0-9.0); NEUTROPHILS # (AUTO) 3.3 K/uL (1.8-7.7); PLATELET COUNT (AUTO) 143 K/uL (150-450); RED BLOOD CELL COUNT(AUTO) 3.61 MIL/uL (4.50-5.90)
[2018-12-10 13:14] LABS: HEMOGLOBIN A1C 8.2 % (4.5-6.2)
[2018-12-10 13:54] LABS: ALBUMIN 3.9 g/dL (3.4-5.0); BILIRUBIN,TOTAL 1.2 mg/dL (0.1-1.0); CALCIUM, TOTAL 9.1 mg/dL (8.8-10.5); CREATININE 8.56 mg/dL (0.60-1.30); FREE T4 (FREE THYROXINE) 1.04 ng/dL (0.76-1.46); MAGNESIUM 2.6 mg/dL (1.80-2.40); POTASSIUM 4.4 mmol/L (3.5-5.1); THYROID STIMULATING HORMONE 1.04 uIU/mL (0.36-3.74); TOTAL PROTEIN, SERUM 7.3 g/dL (6.4-8.2)
== END | disposition home or self-care (01) ==
LOC: LABPV 08:15
PROVIDERS: ATTEND Internal Medicine Cardiovascular Disease
DX: I13.2 Hypertensive heart and chronic kidney disease with heart failure and with stage 5 chronic kidney disease, or end stage renal disease (principal); E11.22 Type 2 diabetes mellitus with diabetic chronic kidney disease; N18.5 Chronic kidney disease, stage 5; I50.9 Heart failure, unspecified; E55.9 Vitamin D deficiency, unspecified; D56.5 Hemoglobin E-beta thalassemia; E78.5 Hyperlipidemia, unspecified; E78.00 Pure hypercholesterolemia, unspecified; Z99.2 Dependence on renal dialysis; Z79.82 Long term (current) use of aspirin; Z88.2 Allergy status to sulfonamides; Z88.8 Allergy status to other drugs, medicaments and biological substances
CPT/HCPCS: 82306; 83036; 83735; 84439; 84443

== ENCOUNTER → 2019-07-11 | Outpatient (CLI) | payer MEDICARE, OTHER ==
[~2019-07-11] MED LIST changes: +SEVE800T17 PO; -SEVEC800 PO
[2019-07-11 09:40] LABS: CHOL/HDL RATIO 2.3 (4.2-7.3)
== END | disposition home or self-care (01) ==
LOC: LABPV 08:24
PROVIDERS: ATTEND Internal Medicine Cardiovascular Disease
DX: E55.9 Vitamin D deficiency, unspecified (principal); I11.0 Hypertensive heart disease with heart failure; I50.9 Heart failure, unspecified; E11.8 Type 2 diabetes mellitus with unspecified complications; D56.5 Hemoglobin E-beta thalassemia

== ENCOUNTER 2021-09-24 16:55 | Inpatient (IN) | payer MEDICARE, MEDICAID ==
[~2021-09-24] VITALS: Ht 172.7 cm; Wt 74.3 kg
[~2021-09-24 16:55] MED LIST changes: +AMOX-426 PO; -ASPI-1182 PO; +ASPI-1444 PO; -ATOR20TA86 PO; +ATOR40TA28 PO; -CLOP75TA3 PO; +CLOP75TA60 PO; +PRED-409 PO; +TACR1CAP12 PO
[2021-09-24] MEDS ORDERED: SODIUM CHLORIDE 0.9% 1,000 ML IV ONE ×3 (18:00→18:30)
[2021-09-24 18:06] LABS: ABG BASE EXCESS -24.9 mmol/L (-2.0-3.0); ABG CARBOXYHEMOGLOBIN 0.4 % (0.0-1.5); ABG METHEMOGLOBIN 0.3 % (0.0-1.5); ABG OXYGEN CONTENT 13.4 mL/dL (15.0-23.0); ABG OXYGEN SATURATION 95.8 % (95.0-98.0); ABG OXYHEMOGLOBIN 95.1 % (94.0-100.0); ABG TOTAL HEMOGLOBIN 9.9 G/dL (12.0-18.0); PO2, ARTERIAL BG 98.9 mmHg (79.0-87.0); SOURCE, BLOOD GAS ARTERIAL; TEMPERATURE, FAHRENHEIT, BG 98.6 FAHREN (96.0-98.6)
[2021-09-24 18:07] LABS: ABG PH 7.064 (7.35-7.450)
[2021-09-24 18:08] LABS: ABG HCO3 7.5 mmol/L (22.0-26.0); ABG PCO2 19 mmHg (35-45); O2 DEVICE,BLOOD GAS ROOM AIR (ROOM AIR); SITE, BLOOD GAS LFT RADIAL
[2021-09-24] MEDS ORDERED: HYDROCORTISONE SOD SUCC 100 MG/2 ML VIAL IVP ONE (18:30)
[2021-09-24 18:41] LABS: HEMATOCRIT 39.1 % (41-53); HEMOGLOBIN 10.9 g/dL (13.5-17.5); MEAN CORPUSCULAR HEMOGLOBIN 32.2 pg (26.0-34.0); MEAN CORPUSCULAR HGB CONC 27.9 G/dL (31.0-37.0); MEAN CORPUSCULAR VOLUME 115 fL (80-100); PLATELET COUNT (AUTO) 204 K/uL (150-450); RED BLOOD CELL COUNT(AUTO) 3.39 MIL/uL (4.50-5.90); RED CELL DISTRIBUTION WIDTH 15.4 % (11.5-14.5)
[2021-09-24 18:43] LABS: BAND NEUTROPHILS % (MANUAL) 13 % (0-5); LYMPHOCYTES % (MANUAL) 6 % (22-44); MONOCYTES % (MANUAL) 3 % (2-9); SEGMENTED NEUTROPHILS % 78 % (40-70)
[2021-09-24 18:44] LABS: PLATELET MORPHOLOGY COMMENT LARGE PLTS PRESENT
[2021-09-24] MEDS ORDERED: PIPERACILLIN/TAZO 3.375 GM/D5W 50 ML IV ONE (18:45)
[2021-09-24] MEDS: INSULIN REGULAR, HUMAN 100 UNITS in SODIUM CHLORIDE 0.9% 99 ML IV SCH ×2 (18:49)
[2021-09-24 18:56] LABS: ALANINE AMINOTRANSFERASE 26 U/L (12-78); ALBUMIN 2.8 g/dL (3.4-5.0); ALKALINE PHOSPHATASE 121 U/L (46-116); ANION GAP 27 mmol/L (8-16); ASPARTATE AMINOTRANSFERASE 19 U/L (15-37); BILIRUBIN,TOTAL 0.9 mg/dL (0.1-1.0); CALCIUM, TOTAL 8.8 mg/dL (8.8-10.5); CHLORIDE 77 mmol/L (98-107); CREATINE KINASE, TOTAL ONLY 165 U/L (39-308); GLOMERULAR FILTR. RATE CALC 19 mL/min (>60); THYROID STIMULATING HORMONE 0.29 uIU/mL (0.36-3.74); TOTAL PROTEIN, SERUM 6.9 g/dL (6.4-8.2)
[2021-09-24 19:01] LABS: POTASSIUM 6.7 mmol/L (3.5-5.1); SODIUM SERUM 112 mmol/L (136-145)
[2021-09-24 19:02] LABS: CARBON DIOXIDE 8 mmol/L (22-29); UREA NITROGEN, BLOOD 111 mg/dL (7-18)
[2021-09-24 19:15] LABS: GLUCOSE,RANDOM 1213 mg/dL (70-110)
[2021-09-24] MEDS ORDERED: CALCIUM GLUCONATE 100 MG/ML 10 ML IVP ONE (19:45)
[2021-09-24 20:16] LABS: GLUCOMETER DEV NAME(LOC) ERT.5; GLUCOSE,POINT OF CARE > 600 MG/DL (70-110)
[2021-09-24 20:27] LABS: COVID AG,FIA SOURCE NASAL SWAB
[2021-09-24] MEDS ORDERED: DEXTROSE 5%-0.45% SODIUM CHL 1,000 ML IV PRN (21:00)
[2021-09-24] MEDS ORDERED: SODIUM CHLORIDE 0.9% 1,000 ML IV SCH (21:00)
[2021-09-24] MEDS ORDERED: ONDANSETRON HCL 4 MG/2 ML VIAL IVP PRN (21:00)
[2021-09-24] MEDS ORDERED: SODIUM CHLORIDE 0.45% 1,000 ML IV PRN (21:00)
[2021-09-24] MEDS ORDERED: INSULIN REGULAR, HUMAN 100 UNITS/ML IVP ONE (21:00)
[2021-09-24] MEDS ORDERED: POTASSIUM CHLORIDE 40 MEQ in SODIUM CHLORIDE 0.45% 1,000 ML IV PRN (21:00)
[2021-09-24] MEDS: FAMOTIDINE 10 MG/ML 2 ML VIAL IVP SCH (21:21)
[2021-09-24 21:31] LABS: GLUCOMETER DEV NAME(LOC) ERT.5; GLUCOSE,POINT OF CARE > 600 MG/DL (70-110)
[2021-09-24 21:33] LABS: CALCIUM, TOTAL 8.2 mg/dL (8.8-10.5); CREATININE 3.16 mg/dL (0.60-1.30); POTASSIUM 5.5 mmol/L (3.5-5.1)
[2021-09-24] MEDS: INSULIN REGULAR, HUMAN 100 UNITS/ML IVP PRN ×2 (21:33→23:50)
[2021-09-24] MEDS: POTASSIUM CHL 20 MEQ/0.45% NS 1,000 ML IV PRN (22:17)
[2021-09-24 23:31] LABS: GLUCOMETER DEV NAME(LOC) ERT.5; GLUCOSE,POINT OF CARE 572 MG/DL (70-110)
[2021-09-24] MEDS: HEPARIN SODIUM,PORCINE 5,000 UNITS/ML VIAL SQ SCH (23:35)
[2021-09-25 00:30] LABS: GLUCOMETER DEV NAME(LOC) ERT.5; GLUCOSE,POINT OF CARE 524 MG/DL (70-110)
[2021-09-25] MEDS: INSULIN REGULAR, HUMAN 100 UNITS in SODIUM CHLORIDE 0.9% 99 ML IV SCH ×2 (00:41)
[2021-09-25] MEDS: INSULIN REGULAR, HUMAN 100 UNITS/ML IVP PRN ×5 (00:43→04:44)
[2021-09-25 01:07] LABS: CALCIUM, TOTAL 7.8 mg/dL (8.8-10.5); CREATININE 2.76 mg/dL (0.60-1.30); POTASSIUM 5.4 mmol/L (3.5-5.1)
[2021-09-25 01:56] LABS: GLUCOMETER DEV NAME(LOC) ERT.5; GLUCOSE,POINT OF CARE 420 MG/DL (70-110)
[2021-09-25] MEDS ORDERED: PIPERACILLIN/TAZO 3.375 GM/D5W 50 ML IV SCH (02:00)
[2021-09-25 02:56] LABS: GLUCOMETER DEV NAME(LOC) ERT.5; GLUCOSE,POINT OF CARE 365 MG/DL (70-110)
[2021-09-25] MEDS ORDERED: ACETAMINOPHEN 650 MG RECTAL SUPPOSITORY PR ONE (03:45)
[2021-09-25 03:51] LABS: GLUCOMETER DEV NAME(LOC) ERT.5; GLUCOSE,POINT OF CARE 327 MG/DL (70-110)
[2021-09-25] MEDS: POTASSIUM CHL 20 MEQ/0.45% NS 1,000 ML IV PRN (03:57)
[2021-09-25 04:46] LABS: GLUCOMETER DEV NAME(LOC) ERT.5; GLUCOSE,POINT OF CARE 294 MG/DL (70-110)
[2021-09-25] MEDS: INSULIN REGULAR, HUMAN 100 UNITS in SODIUM CHLORIDE 0.9% 99 ML IV PRN ×2 (05:02)
[2021-09-25 05:08] LABS: ALBUMIN 2.1 g/dL (3.4-5.0); BILIRUBIN,TOTAL 0.5 mg/dL (0.1-1.0); CALCIUM, TOTAL 7.8 mg/dL (8.8-10.5); CREATININE 2.66 mg/dL (0.60-1.30); MAGNESIUM 2.8 mg/dL (1.80-2.40); POTASSIUM 5.7 mmol/L (3.5-5.1); TOTAL PROTEIN, SERUM 5.2 g/dL (6.4-8.2)
[2021-09-25 05:32] LABS: PHOSPHORUS 0.5 mg/dL (2.5-4.9)
[2021-09-25] MEDS ORDERED: VANCOMYCIN HCL 1 GM/D5% WATER 200 ML IV PRN (05:45)
[2021-09-25] MEDS ORDERED: VANCOMYCIN HCL 1.25 GM in DEXTROSE 5%-WATER 250 ML IV ONE (05:45)
[2021-09-25 05:51] LABS: APPEARANCE,URINE CLEAR (CLEAR); GLUCOSE, URINE (UA) 500 mg/dL (NEGATIVE); KETONES,URINE 15 mg/dL (NEGATIVE); LEUKOCYTE ESTERASE ,URINE NEGATIVE (NEGATIVE); NITRATE,URINE NEGATIVE (NEGATIVE); OCCULT BLOOD,URINE LARGE (NEGATIVE); PH,URINE 5.5 (5.0-8.0); PROTEIN,URINE POS 1+ (NEGATIVE); UROBILINOGEN,URINE 0.2 mg/dL (<=1.0)
[2021-09-25 05:54] LABS: BILIRUBIN,URINE PRELIM. POSITIVE (NEGATIVE)
[2021-09-25 05:55] LABS: BACTERIA,URINE Rare /HPF (None Seen); WBC,URINE 0-2 /HPF (0-5)
[2021-09-25 05:56] LABS: BACTERIA,URINE Rare /HPF (None Seen); WBC,URINE 0-2 /HPF (0-5)
[2021-09-25 06:07] LABS: GLUCOMETER DEV NAME(LOC) ERT.5; GLUCOSE,POINT OF CARE 195 MG/DL (70-110)
[2021-09-25] MEDS ORDERED: SODIUM PHOS,M-BASIC-D-BASIC 30 MEQ in DEXTROSE 5%-WATER 150 ML IV ONE (06:15)
[2021-09-25 06:46] LABS: GLUCOMETER DEV NAME(LOC) ERT.5; GLUCOSE,POINT OF CARE 213 MG/DL (70-110)
[2021-09-25 07:46] LABS: GLUCOMETER DEV NAME(LOC) ERT.5; GLUCOSE,POINT OF CARE 230 MG/DL (70-110)
[2021-09-25] MEDS: SEVELAMER CARBONATE 800 MG TABLET PO SCH ×4 (08:00→20:54)
[2021-09-25 08:15] LABS: ABG BASE EXCESS -4.9 mmol/L (-2.0-3.0); ABG CARBOXYHEMOGLOBIN 0.6 % (0.0-1.5); ABG HCO3 20.7 mmol/L (22.0-26.0); ABG METHEMOGLOBIN 0.3 % (0.0-1.5); ABG OXYGEN CONTENT 11.2 mL/dL (15.0-23.0); ABG OXYGEN SATURATION 90.9 % (95.0-98.0); ABG OXYHEMOGLOBIN 90.1 % (94.0-100.0); ABG PCO2 36 mmHg (35-45); ABG PH 7.366 (7.35-7.450); ABG TOTAL HEMOGLOBIN 8.8 G/dL (12.0-18.0); SOURCE, BLOOD GAS ARTERIAL; TEMPERATURE, FAHRENHEIT, BG 100.3 FAHREN (96.0-98.6)
[2021-09-25 08:16] LABS: SITE, BLOOD GAS LFT BRACHIAL
[2021-09-25] MEDS: HEPARIN SODIUM,PORCINE 5,000 UNITS/ML VIAL SQ SCH ×2 (08:56→16:22)
[2021-09-25] MEDS ORDERED: ASPIRIN 81 MG DR TABLET PO SCH (09:00)
[2021-09-25] MEDS ORDERED: CLOPIDOGREL BISULFATE 75 MG TABLET PO SCH (09:00)
[2021-09-25] MEDS: VITAMIN B COMPLEX WITH C TABLET PO SCH (09:59)
[2021-09-25] MEDS: METOPROLOL SUCCINATE 25 MG ER TABLET PO SCH ×2 (09:59→20:52)
[2021-09-25] MEDS: PredniSONE 5 MG TABLET PO SCH (09:59)
[2021-09-25 10:01] LABS: GLUCOMETER DEV NAME(LOC) ERT.5; GLUCOSE,POINT OF CARE 230 MG/DL (70-110)
[2021-09-25 10:01] LABS: CALCIUM, TOTAL 7.7 mg/dL (8.8-10.5); CREATININE 2.64 mg/dL (0.60-1.30); POTASSIUM 5.1 mmol/L (3.5-5.1)
[2021-09-25 10:01] LABS: GLUCOMETER DEV NAME(LOC) ERT.5; GLUCOSE,POINT OF CARE 190 MG/DL (70-110)
[2021-09-25] MEDS: PIPERACILLIN SODIUM/TAZOBACTAM 2.25 GM in DEXTROSE 5%-WATER 50 ML IV SCH ×2 (10:12→16:22)
[2021-09-25 11:31] LABS: GLUCOMETER DEV NAME(LOC) ERT.5; GLUCOSE,POINT OF CARE 204 MG/DL (70-110)
[2021-09-25 12:16] LABS: GLUCOMETER DEV NAME(LOC) ERT.5; GLUCOSE,POINT OF CARE 185 MG/DL (70-110)
[2021-09-25 13:46] LABS: CALCIUM, TOTAL 7.7 mg/dL (8.8-10.5); CREATININE 2.5 mg/dL (0.60-1.30); POTASSIUM 4.7 mmol/L (3.5-5.1)
[2021-09-25 13:46] LABS: GLUCOMETER DEV NAME(LOC) ERT.5; GLUCOSE,POINT OF CARE 151 MG/DL (70-110)
[2021-09-25 14:36] LABS: BASOPHILS % (AUTO) 0.1 % (0.0-2.0); EOSINOPHILS % (AUTO) 0.2 % (1.0-6.0); LYMPHOCYTES # (AUTO) 0.3 K/uL (1.0-4.8); MEAN CORPUSCULAR HEMOGLOBIN 31.9 pg (26.0-34.0); MEAN CORPUSCULAR HGB CONC 33.8 G/dL (31.0-37.0); MEAN CORPUSCULAR VOLUME 94 fL (80-100); MONOCYTES # (AUTO) 0.7 K/uL (0.1-1.0); NEUTROPHILS # (AUTO) 15.8 K/uL (1.8-7.7); RED BLOOD CELL COUNT(AUTO) 2.61 MIL/uL (4.50-5.90); RED CELL DISTRIBUTION WIDTH 13.2 % (11.5-14.5)
[2021-09-25 14:37] LABS: NEUTROPHILS % (AUTO) 93.7 % (40.0-70.0)
[2021-09-25 14:38] LABS: HEMATOCRIT 24.6 % (41-53); HEMOGLOBIN 8.3 g/dL (13.5-17.5); PLATELET COUNT (AUTO) 130 K/uL (150-450)
[2021-09-25 14:51] LABS: GLUCOMETER DEV NAME(LOC) ERT.5; GLUCOSE,POINT OF CARE 136 MG/DL (70-110)
[2021-09-25 15:11] LABS: GLUCOMETER DEV NAME(LOC) ERT.5; GLUCOSE,POINT OF CARE 123 MG/DL (70-110)
[2021-09-25 15:13] LABS: PHOSPHORUS 1.2 mg/dL (2.5-4.9)
[2021-09-25] MEDS ORDERED: DOXYCYCLINE HYCLATE 100 MG in DEXTROSE 5%-WATER 100 ML IV SCH (15:30)
[2021-09-25] MEDS ORDERED: *CLINICAL-LEVOFLOXACIN IVPB DOSING CLINICAL ONE (15:45)
[2021-09-25] MEDS: LEVOFLOXACIN 750 MG/D5% WATER 150 ML IV SCH (16:23)
[2021-09-25 16:31] LABS: GLUCOMETER DEV NAME(LOC) ERT.5; GLUCOSE,POINT OF CARE 80 MG/DL (70-110)
[2021-09-25 17:16] LABS: GLUCOMETER DEV NAME(LOC) ERT.5; GLUCOSE,POINT OF CARE 96 MG/DL (70-110)
[2021-09-25 18:46] LABS: GLUCOMETER DEV NAME(LOC) ERT.5; GLUCOSE,POINT OF CARE 162 MG/DL (70-110)
[2021-09-25 18:53] LABS: CALCIUM, TOTAL 7.4 mg/dL (8.8-10.5); CREATININE 2.17 mg/dL (0.60-1.30)
[2021-09-25 19:01] LABS: PHOSPHORUS 1.4 mg/dL (2.5-4.9)
[2021-09-25] MEDS ORDERED: SODIUM PHOS,M-BASIC-D-BASIC 20 MMOL in DEXTROSE 5%-WATER 150 ML IV ONE (19:15)
[2021-09-25 19:51] LABS: GLUCOMETER DEV NAME(LOC) ERT.5; GLUCOSE,POINT OF CARE 166 MG/DL (70-110)
[2021-09-25] MEDS: FAMOTIDINE 10 MG/ML 2 ML VIAL IVP SCH (20:36)
[2021-09-25 20:46] LABS: GLUCOMETER DEV NAME(LOC) ERT.5; GLUCOSE,POINT OF CARE 125 MG/DL (70-110)
[2021-09-25] MEDS ORDERED: RINGERS SOLUTION,LACTATED 1,000 ML IV ONE (21:00)
[2021-09-25] MEDS: ACETAMINOPHEN 325 MG TABLET PO PRN (21:09)
[2021-09-25] MEDS: ATORVASTATIN CALCIUM 40 MG TABLET PO SCH (21:09)
[2021-09-25] MEDS ORDERED: *CLINICAL-MEROPENEM DOSING CLINICAL ONE (21:15)
[2021-09-25 21:47] LABS: GLUCOMETER DEV NAME(LOC) ERT.5; GLUCOSE,POINT OF CARE 100 MG/DL (70-110)
[2021-09-25 22:33] LABS: CALCIUM, TOTAL 7.3 mg/dL (8.8-10.5); PHOSPHORUS 2.1 mg/dL (2.5-4.9); POTASSIUM 4.4 mmol/L (3.5-5.1)
[2021-09-25] MEDS: DEXTROSE 50%-WATER 25 GM/50 ML SYRINGE IVP PRN (22:48)
[2021-09-25] MEDS: MEROPENEM 1 GM in SODIUM CHLORIDE 0.9% 100 ML IV SCH (22:49)
[2021-09-25 22:51] LABS: GLUCOSE,POINT OF CARE 49 MG/DL (70-110)
[2021-09-25] MEDS: PANTOPRAZOLE SODIUM 40 MG/VIAL IVP SCH (23:31)
[2021-09-25 23:52] LABS: GLUCOSE,POINT OF CARE 129 MG/DL (70-110)
[2021-09-26] MEDS ORDERED: HYDROCORTISONE SOD SUCC 100 MG/2 ML VIAL IVP ONE (00:45)
[2021-09-26] MEDS: INSULIN REGULAR, HUMAN 100 UNITS in SODIUM CHLORIDE 0.9% 99 ML IV PRN ×2 (00:58)
[2021-09-26 01:06] LABS: GLUCOSE,POINT OF CARE 180 MG/DL (70-110)
[2021-09-26] MEDS ORDERED: MIDAZOLAM HCL 2 MG/2 ML VIAL IVP ONE (01:30)
[2021-09-26 02:21] LABS: GLUCOSE,POINT OF CARE 167 MG/DL (70-110)
[2021-09-26 02:23] LABS: CREATININE 1.99 mg/dL (0.60-1.30); POTASSIUM 4.5 mmol/L (3.5-5.1)
[2021-09-26] MEDS: NOREPINEPHRINE 4 MG/D5%-WATER 250 ML IV PRN (02:42)
[2021-09-26 03:41] LABS: GLUCOSE,POINT OF CARE 146 MG/DL (70-110)
[2021-09-26 04:47] LABS: GLUCOSE,POINT OF CARE 170 MG/DL (70-110)
[2021-09-26 05:47] LABS: GLUCOSE,POINT OF CARE 95 MG/DL (70-110)
[2021-09-26 07:01] LABS: GLUCOSE,POINT OF CARE 96 MG/DL (70-110)
[2021-09-26 07:09] LABS: CALCIUM, TOTAL 7.6 mg/dL (8.8-10.5); CREATININE 1.83 mg/dL (0.60-1.30); POTASSIUM 4.6 mmol/L (3.5-5.1)
[2021-09-26] MEDS: SEVELAMER CARBONATE 800 MG TABLET PO SCH ×4 (07:33→20:14)
[2021-09-26] MEDS: VITAMIN B COMPLEX WITH C TABLET PO SCH (08:09)
[2021-09-26 08:16] LABS: GLUCOSE,POINT OF CARE 48 MG/DL (70-110)
[2021-09-26 08:16] LABS: GLUCOSE,POINT OF CARE 112 MG/DL (70-110)
[2021-09-26] MEDS: DEXTROSE 50%-WATER 25 GM/50 ML SYRINGE IVP PRN (08:27)
[2021-09-26] MEDS: PANTOPRAZOLE SODIUM 40 MG/VIAL IVP SCH ×2 (08:27→21:13)
[2021-09-26] MEDS: PredniSONE 5 MG TABLET PO SCH (09:00)
[2021-09-26 09:26] LABS: GLUCOSE,POINT OF CARE 121 MG/DL (70-110)
[2021-09-26 09:36] LABS: BASOPHILS % (AUTO) 0.5 % (0.0-2.0); EOSINOPHILS % (AUTO) 0.2 % (1.0-6.0); HEMATOCRIT 22.8 % (41-53); HEMOGLOBIN 7.6 g/dL (13.5-17.5); LYMPHOCYTES # (AUTO) 0.8 K/uL (1.0-4.8); LYMPHOCYTES % (AUTO) 4.2 % (22.0-44.0); MEAN CORPUSCULAR HEMOGLOBIN 32.1 pg (26.0-34.0); MEAN CORPUSCULAR HGB CONC 33.3 G/dL (31.0-37.0); MEAN CORPUSCULAR VOLUME 97 fL (80-100); MONOCYTES % (AUTO) 5.6 % (2.0-9.0); NEUTROPHILS # (AUTO) 16.2 K/uL (1.8-7.7); PLATELET COUNT (AUTO) 129 K/uL (150-450); RED BLOOD CELL COUNT(AUTO) 2.36 MIL/uL (4.50-5.90); RED CELL DISTRIBUTION WIDTH 13.7 % (11.5-14.5)
[2021-09-26 09:45] LABS: CALCIUM, TOTAL 7.4 mg/dL (8.8-10.5); CREATININE 1.62 mg/dL (0.60-1.30); POTASSIUM 5.1 mmol/L (3.5-5.1)
[2021-09-26 10:19] LABS: NEUTROPHILS % (AUTO) 89.5 % (40.0-70.0)
[2021-09-26 11:21] LABS: GLUCOSE,POINT OF CARE 203 MG/DL (70-110)
[2021-09-26] MEDS ORDERED: SUCCINYLCHOLINE CHLORIDE 20 MG/ML 10 ML VIAL ONE (11:39)
[2021-09-26] MEDS ORDERED: PHENYLEPHRINE HCL 400 MG in DEXTROSE 5%-WATER 210 ML IV PRN (11:45)
[2021-09-26 12:08] LABS: BASOPHILS % (AUTO) 0.4 % (0.0-2.0); EOSINOPHILS % (AUTO) 0.3 % (1.0-6.0); HEMATOCRIT 24.2 % (41-53); HEMOGLOBIN 7.4 g/dL (13.5-17.5); LYMPHOCYTES # (AUTO) 2.7 K/uL (1.0-4.8); LYMPHOCYTES % (AUTO) 14.9 % (22.0-44.0); MEAN CORPUSCULAR HEMOGLOBIN 32.1 pg (26.0-34.0); MEAN CORPUSCULAR HGB CONC 30.5 G/dL (31.0-37.0); MEAN CORPUSCULAR VOLUME 106 fL (80-100); MONOCYTES # (AUTO) 0.6 K/uL (0.1-1.0); MONOCYTES % (AUTO) 3.2 % (2.0-9.0); NEUTROPHILS # (AUTO) 14.9 K/uL (1.8-7.7); NEUTROPHILS % (AUTO) 81.2 % (40.0-70.0); PLATELET COUNT (AUTO) 115 K/uL (150-450); RED BLOOD CELL COUNT(AUTO) 2.29 MIL/uL (4.50-5.90); RED CELL DISTRIBUTION WIDTH 14.7 % (11.5-14.5)
[2021-09-26 12:19] LABS: CALCIUM, TOTAL 7.2 mg/dL (8.8-10.5); POTASSIUM 5.2 mmol/L (3.5-5.1)
[2021-09-26 12:36] LABS: ALBUMIN 1.8 g/dL (3.4-5.0); BILIRUBIN,TOTAL 0.9 mg/dL (0.1-1.0)
[2021-09-26 13:07] LABS: ABG BASE EXCESS -15.8 mmol/L (-2.0-3.0); ABG CARBOXYHEMOGLOBIN 0.2 % (0.0-1.5); ABG METHEMOGLOBIN 0.2 % (0.0-1.5); ABG OXYGEN CONTENT 11.5 mL/dL (15.0-23.0); ABG OXYHEMOGLOBIN 97.6 % (94.0-100.0); ABG PCO2 29 mmHg (35-45); ABG PH 7.224 (7.35-7.450); ABG TOTAL HEMOGLOBIN 8.2 G/dL (12.0-18.0); PO2, ARTERIAL BG 127.1 mmHg (79.0-87.0); SOURCE, BLOOD GAS ARTERIAL; TEMPERATURE, FAHRENHEIT, BG 98.4 FAHREN (96.0-98.6)
[2021-09-26 13:08] LABS: ABG A-A DIFF O2 556.9 mmHg (10-20.0); SITE, BLOOD GAS LFT RADIAL; VENT MODE, BG Press. Control Vent (ROOM AIR)
[2021-09-26 13:09] LABS: O2 DEVICE,BLOOD GAS VENTILATOR (ROOM AIR); PEEP,BG 5 cm H2O; SPONTANEOUS VT, BG 784 ml
[2021-09-26] MEDS ORDERED: DEXTROSE 50%-WATER 25 GM/50 ML SYRINGE IVP PRN (13:30)
[2021-09-26] MEDS ORDERED: POTASSIUM CHLORIDE 40 MEQ in SODIUM CHLORIDE 0.45% 1,000 ML IV PRN (13:30)
[2021-09-26] MEDS ORDERED: SODIUM CHLORIDE 0.45% 1,000 ML IV PRN (13:30)
[2021-09-26] MEDS ORDERED: INSULIN REGULAR, HUMAN 100 UNITS in SODIUM CHLORIDE 0.9% 99 ML IV PRN ×2 (13:30)
[2021-09-26] MEDS ORDERED: POTASSIUM CHL 20 MEQ/0.45% NS 1,000 ML IV PRN (13:30)
[2021-09-26] MEDS ORDERED: DEXTROSE 5%-0.45% SODIUM CHL 1,000 ML IV PRN (13:30)
[2021-09-26] MEDS ORDERED: SODIUM CHLORIDE 0.9% 1,000 ML IV SCH (13:30)
[2021-09-26] MEDS ORDERED: INSULIN REGULAR, HUMAN 100 UNITS/ML IVP ONE (13:30)
[2021-09-26 13:47] LABS: BASOPHILS % (AUTO) 0.3 % (0.0-2.0); EOSINOPHILS % (AUTO) 0.5 % (1.0-6.0); HEMATOCRIT 26.7 % (41-53); HEMOGLOBIN 8.4 g/dL (13.5-17.5); LYMPHOCYTES # (AUTO) 0.8 K/uL (1.0-4.8); LYMPHOCYTES % (AUTO) 4.3 % (22.0-44.0); MEAN CORPUSCULAR HEMOGLOBIN 32.1 pg (26.0-34.0); MEAN CORPUSCULAR HGB CONC 31.3 G/dL (31.0-37.0); MEAN CORPUSCULAR VOLUME 103 fL (80-100); MONOCYTES # (AUTO) 0.7 K/uL (0.1-1.0); MONOCYTES % (AUTO) 3.6 % (2.0-9.0); NEUTROPHILS # (AUTO) 16.7 K/uL (1.8-7.7); PLATELET COUNT (AUTO) 143 K/uL (150-450); RED CELL DISTRIBUTION WIDTH 14.5 % (11.5-14.5)
[2021-09-26 13:48] LABS: NEUTROPHILS % (AUTO) 91.3 % (40.0-70.0)
[2021-09-26 13:58] LABS: CALCIUM, TOTAL 7.5 mg/dL (8.8-10.5); CREATININE 1.86 mg/dL (0.60-1.30); POTASSIUM 5.6 mmol/L (3.5-5.1)
[2021-09-26 14:46] LABS: GLUCOSE,POINT OF CARE 395 MG/DL (70-110)
[2021-09-26] MEDS: MEROPENEM 1 GM in SODIUM CHLORIDE 0.9% 100 ML IV SCH ×2 (15:49→21:43)
[2021-09-26 15:51] LABS: GLUCOSE,POINT OF CARE 483 MG/DL (70-110)
[2021-09-26 18:09] LABS: CREATININE 2.2 mg/dL (0.60-1.30); POTASSIUM 5.6 mmol/L (3.5-5.1)
[2021-09-26] MEDS: INSULIN REGULAR, HUMAN 100 UNITS/ML IVP PRN ×4 (18:11→23:51)
[2021-09-26 18:12] LABS: GLUCOSE,POINT OF CARE 453 MG/DL (70-110)
[2021-09-26 20:01] LABS: GLUCOSE,POINT OF CARE 410 MG/DL (70-110)
[2021-09-26] MEDS: ATORVASTATIN CALCIUM 40 MG TABLET PO SCH (20:14)
[2021-09-26 21:18] LABS: HEMATOCRIT 23.9 % (41-53); HEMOGLOBIN 7.8 g/dL (13.5-17.5); MEAN CORPUSCULAR HEMOGLOBIN 32.2 pg (26.0-34.0); MEAN CORPUSCULAR HGB CONC 32.6 G/dL (31.0-37.0); MEAN CORPUSCULAR VOLUME 99 fL (80-100); PLATELET COUNT (AUTO) 152 K/uL (150-450); RED BLOOD CELL COUNT(AUTO) 2.43 MIL/uL (4.50-5.90); RED CELL DISTRIBUTION WIDTH 14.4 % (11.5-14.5)
[2021-09-26 21:35] LABS: CALCIUM, TOTAL 7.1 mg/dL (8.8-10.5); CREATININE 2.45 mg/dL (0.60-1.30); POTASSIUM 5.1 mmol/L (3.5-5.1)
[2021-09-26] MEDS: ACETAMINOPHEN 325 MG TABLET PO PRN (21:37)
[2021-09-26 21:46] LABS: GLUCOMETER DEV NAME(LOC) ERT.5; GLUCOSE,POINT OF CARE 338 MG/DL (70-110)
[2021-09-26 22:05] LABS: BAND NEUTROPHILS % (MANUAL) 23 % (0-5); LYMPHOCYTES % (MANUAL) 5 % (22-44); METAMYELOCYTES % 2 % (0-0); MONOCYTES % (MANUAL) 2 % (2-9); MYELOCYTES % 1 % (0-0); SEGMENTED NEUTROPHILS % 67 % (40-70)
[2021-09-26] MEDS: OCTREOTIDE ACETATE 500 MCG in DEXTROSE 5%-WATER 97.5 ML IV SCH (22:17)
[2021-09-26] MEDS: PANTOPRAZOLE SODIUM 80 MG in SODIUM CHLORIDE 0.9% 100 ML IV SCH (22:17)
[2021-09-26 22:45] LABS: GLUCOSE,POINT OF CARE 333 MG/DL (70-110)
[2021-09-26 23:56] LABS: GLUCOSE,POINT OF CARE 309 MG/DL (70-110)
[2021-09-27] VITALS (10 sets, daily range): BP systolic 97–116; BP diastolic 54–76
[2021-09-27 00:46] LABS: GLUCOSE,POINT OF CARE 261 MG/DL (70-110)
[2021-09-27 01:51] LABS: GLUCOSE,POINT OF CARE 179 MG/DL (70-110)
[2021-09-27 02:03] LABS: CALCIUM, TOTAL 6.7 mg/dL (8.8-10.5); CREATININE 2.5 mg/dL (0.60-1.30); POTASSIUM 4.8 mmol/L (3.5-5.1)
[2021-09-27 02:42] LABS: GLUCOSE,POINT OF CARE 159 MG/DL (70-110)
[2021-09-27 03:36] LABS: GLUCOSE,POINT OF CARE 175 MG/DL (70-110)
[2021-09-27 04:36] LABS: GLUCOSE,POINT OF CARE 133 MG/DL (70-110)
[2021-09-27 05:49] LABS: BASOPHILS % (AUTO) 0.1 % (0.0-2.0); EOSINOPHILS % (AUTO) 0.3 % (1.0-6.0); LYMPHOCYTES # (AUTO) 0.7 K/uL (1.0-4.8); LYMPHOCYTES % (AUTO) 3.8 % (22.0-44.0); MEAN CORPUSCULAR HEMOGLOBIN 31.9 pg (26.0-34.0); MEAN CORPUSCULAR HGB CONC 33.6 G/dL (31.0-37.0); MEAN CORPUSCULAR VOLUME 95 fL (80-100); MONOCYTES % (AUTO) 5.5 % (2.0-9.0); NEUTROPHILS # (AUTO) 16.7 K/uL (1.8-7.7); PLATELET COUNT (AUTO) 115 K/uL (150-450); RED BLOOD CELL COUNT(AUTO) 2.03 MIL/uL (4.50-5.90); RED CELL DISTRIBUTION WIDTH 13.9 % (11.5-14.5)
[2021-09-27 05:56] LABS: GLUCOSE,POINT OF CARE 76 MG/DL (70-110)
[2021-09-27 06:10] LABS: HEMATOCRIT 19.3 % (41-53); NEUTROPHILS % (AUTO) 90.3 % (40.0-70.0)
[2021-09-27 06:14] LABS: HEMOGLOBIN 6.5 g/dL (13.5-17.5)
[2021-09-27 06:23] LABS: ALBUMIN 1.6 g/dL (3.4-5.0); BILIRUBIN,TOTAL 0.7 mg/dL (0.1-1.0); C-REACTIVE PROTEIN QUANT 20.28 mg/dL (0.00-0.30); CALCIUM, TOTAL 6.9 mg/dL (8.8-10.5); CREATININE 2.38 mg/dL (0.60-1.30); MAGNESIUM 2.4 mg/dL (1.80-2.40); PHOSPHORUS 2.4 mg/dL (2.5-4.9); POTASSIUM 4.6 mmol/L (3.5-5.1); TOTAL PROTEIN, SERUM 4.8 g/dL (6.4-8.2)
[2021-09-27 06:31] LABS: GLUCOMETER DEV NAME(LOC) ERT.5; GLUCOSE,POINT OF CARE 78 MG/DL (70-110)
[2021-09-27 07:31] LABS: GLUCOSE,POINT OF CARE 85 MG/DL (70-110)
[2021-09-27] MEDS: OCTREOTIDE ACETATE 500 MCG in DEXTROSE 5%-WATER 97.5 ML IV SCH (07:34)
[2021-09-27] MEDS: PANTOPRAZOLE SODIUM 80 MG in SODIUM CHLORIDE 0.9% 100 ML IV SCH ×2 (07:34→16:29)
[2021-09-27] MEDS ORDERED: VANCOMYCIN HCL 1 GM/D5% WATER 200 ML IV ONE (08:00)
[2021-09-27] MEDS: SEVELAMER CARBONATE 800 MG TABLET PO SCH ×4 (08:00→20:57)
[2021-09-27] MEDS: PredniSONE 5 MG TABLET PO SCH (08:05)
[2021-09-27] MEDS: VITAMIN B COMPLEX WITH C TABLET PO SCH (08:06)
[2021-09-27] MEDS: MEROPENEM 1 GM in SODIUM CHLORIDE 0.9% 100 ML IV SCH ×2 (09:13→21:48)
[2021-09-27 09:16] LABS: GLUCOSE,POINT OF CARE 126 MG/DL (70-110)
[2021-09-27 09:16] LABS: GLUCOSE,POINT OF CARE 125 MG/DL (70-110)
[2021-09-27 10:26] LABS: GLUCOSE,POINT OF CARE 145 MG/DL (70-110)
[2021-09-27] MEDS ORDERED: SODIUM BICARBONATE 75 MEQ in DEXTROSE 5%-0.45% SODIUM CHL 1,000 ML IV PRN (11:07)
[2021-09-27 11:36] LABS: GLUCOSE,POINT OF CARE 103 MG/DL (70-110)
[2021-09-27 13:06] LABS: GLUCOSE,POINT OF CARE 99 MG/DL (70-110)
[2021-09-27] MEDS: NOREPINEPHRINE 4 MG/D5%-WATER 250 ML IV PRN (13:41)
[2021-09-27 13:45] LABS: CALCIUM, TOTAL 6.7 mg/dL (8.8-10.5); CREATININE 2.59 mg/dL (0.60-1.30); POTASSIUM 4.6 mmol/L (3.5-5.1)
[2021-09-27] MEDS ORDERED: DEXTROSE 50%-WATER 25 GM/50 ML SYRINGE IVP PRN (14:45)
[2021-09-27] MEDS: LEVOFLOXACIN 750 MG/D5% WATER 150 ML IV SCH (16:32)
[2021-09-27 17:21] LABS: GLUCOSE,POINT OF CARE 62 MG/DL (70-110)
[2021-09-27 17:21] LABS: GLUCOSE,POINT OF CARE 65 MG/DL (70-110)
[2021-09-27 17:46] LABS: GLUCOSE,POINT OF CARE 98 MG/DL (70-110)
[2021-09-27 17:54] LABS: CALCIUM, TOTAL 6.9 mg/dL (8.8-10.5); CREATININE 2.61 mg/dL (0.60-1.30); POTASSIUM 4.5 mmol/L (3.5-5.1)
[2021-09-27 18:36] LABS: GLUCOSE,POINT OF CARE 155 MG/DL (70-110)
[2021-09-27] MEDS: ATORVASTATIN CALCIUM 40 MG TABLET PO SCH (21:03)
[2021-09-27] MEDS: INSULIN GLARGINE,HUM.REC.ANLOG 100 UNITS/ML SQ SCH (21:04)
[2021-09-27] MEDS: INSULIN LISPRO 100 UNITS/ML SQ PRN (21:11)
[2021-09-27 22:59] LABS: CALCIUM, TOTAL 6.8 mg/dL (8.8-10.5); CREATININE 2.77 mg/dL (0.60-1.30); POTASSIUM 4.1 mmol/L (3.5-5.1)
[2021-09-27 23:46] LABS: GLUCOSE,POINT OF CARE 119 MG/DL (70-110)
[2021-09-28] VITALS (11 sets, daily range): BP systolic 94–116; BP diastolic 43–66
[2021-09-28 01:36] LABS: GLUCOSE,POINT OF CARE 119 MG/DL (70-110)
[2021-09-28 02:31] LABS: GLUCOSE,POINT OF CARE 148 MG/DL (70-110)
[2021-09-28] MEDS: PANTOPRAZOLE SODIUM 80 MG in SODIUM CHLORIDE 0.9% 100 ML IV SCH ×3 (02:36→14:28)
[2021-09-28] MEDS: INSULIN LISPRO 100 UNITS/ML SQ PRN ×7 (03:27→10:38)
[2021-09-28 03:36] LABS: GLUCOSE,POINT OF CARE 178 MG/DL (70-110)
[2021-09-28 04:31] LABS: GLUCOSE,POINT OF CARE 209 MG/DL (70-110)
[2021-09-28 05:17] LABS: BASOPHILS % (AUTO) 0.2 % (0.0-2.0); EOSINOPHILS % (AUTO) 0.9 % (1.0-6.0); HEMATOCRIT 22.1 % (41-53); HEMOGLOBIN 7.4 g/dL (13.5-17.5); LYMPHOCYTES # (AUTO) 0.5 K/uL (1.0-4.8); LYMPHOCYTES % (AUTO) 2.3 % (22.0-44.0); MEAN CORPUSCULAR HEMOGLOBIN 31.8 pg (26.0-34.0); MEAN CORPUSCULAR HGB CONC 33.4 G/dL (31.0-37.0); MEAN CORPUSCULAR VOLUME 95 fL (80-100); MONOCYTES # (AUTO) 0.7 K/uL (0.1-1.0); MONOCYTES % (AUTO) 3.7 % (2.0-9.0); NEUTROPHILS # (AUTO) 18.5 K/uL (1.8-7.7); PLATELET COUNT (AUTO) 148 K/uL (150-450); RED BLOOD CELL COUNT(AUTO) 2.32 MIL/uL (4.50-5.90); RED CELL DISTRIBUTION WIDTH 14.4 % (11.5-14.5)
[2021-09-28 05:26] LABS: GLUCOSE,POINT OF CARE 205 MG/DL (70-110)
[2021-09-28 05:55] LABS: NEUTROPHILS % (AUTO) 92.9 % (40.0-70.0)
[2021-09-28 06:10] LABS: ALBUMIN 1.4 g/dL (3.4-5.0); BILIRUBIN,TOTAL 1.2 mg/dL (0.1-1.0); C-REACTIVE PROTEIN QUANT 13.49 mg/dL (0.00-0.30); CALCIUM, TOTAL 6.7 mg/dL (8.8-10.5); CREATININE 2.87 mg/dL (0.60-1.30); MAGNESIUM 2.4 mg/dL (1.80-2.40); PHOSPHORUS 1.9 mg/dL (2.5-4.9); POTASSIUM 4.2 mmol/L (3.5-5.1); TOTAL PROTEIN, SERUM 4.8 g/dL (6.4-8.2)
[2021-09-28 06:51] LABS: GLUCOSE,POINT OF CARE 167 MG/DL (70-110)
[2021-09-28 07:46] LABS: GLUCOSE,POINT OF CARE 156 MG/DL (70-110)
[2021-09-28] MEDS: SEVELAMER CARBONATE 800 MG TABLET PO SCH (08:00)
[2021-09-28] MEDS ORDERED: VANCOMYCIN HCL 750 MG in DEXTROSE 5%-WATER 250 ML IV ONE (08:00)
[2021-09-28 08:41] LABS: GLUCOSE,POINT OF CARE 143 MG/DL (70-110)
[2021-09-28] MEDS: VITAMIN B COMPLEX WITH C TABLET PO SCH (09:02)
[2021-09-28] MEDS: INSULIN GLARGINE,HUM.REC.ANLOG 100 UNITS/ML SQ SCH ×2 (09:04→21:52)
[2021-09-28] MEDS: MEROPENEM 1 GM in SODIUM CHLORIDE 0.9% 100 ML IV SCH ×2 (09:36→21:20)
[2021-09-28] MEDS ORDERED: SODIUM PHOS,M-BASIC-D-BASIC 10 MEQ in DEXTROSE 5%-WATER 50 ML IV ONE (09:45)
[2021-09-28 09:46] LABS: GLUCOSE,POINT OF CARE 144 MG/DL (70-110)
[2021-09-28 09:58] LABS: CALCIUM, TOTAL 6.9 mg/dL (8.8-10.5); CREATININE 2.9 mg/dL (0.60-1.30)
[2021-09-28 10:46] LABS: GLUCOSE,POINT OF CARE 141 MG/DL (70-110)
[2021-09-28] MEDS: HYDROCORTISONE SOD SUCC 100 MG/2 ML VIAL IVP SCH ×3 (11:47→23:39)
[2021-09-28 12:01] LABS: GLUCOSE,POINT OF CARE 119 MG/DL (70-110)
[2021-09-28 13:23] LABS: ABG BASE EXCESS -5.2 mmol/L (-2.0-3.0); ABG CARBOXYHEMOGLOBIN 1.9 % (0.0-1.5); ABG HCO3 20.6 mmol/L (22.0-26.0); ABG METHEMOGLOBIN 0.3 % (0.0-1.5); ABG OXYGEN CONTENT 10.7 mL/dL (15.0-23.0); ABG OXYGEN SATURATION 97.8 % (95.0-98.0); ABG OXYHEMOGLOBIN 95.6 % (94.0-100.0); ABG PCO2 31 mmHg (35-45); ABG PH 7.415 (7.35-7.450); PO2, ARTERIAL BG 89.3 mmHg (79.0-87.0); SOURCE, BLOOD GAS ARTERIAL
[2021-09-28 13:25] LABS: ABG TOTAL HEMOGLOBIN 7.8 G/dL (12.0-18.0); O2 DEVICE,BLOOD GAS VENTILATOR (ROOM AIR); SITE, BLOOD GAS RT BRACHIAL; VENT MODE, BG Press. Control Vent (ROOM AIR)
[2021-09-28 13:26] LABS: PEEP,BG 5 cm H2O; SPONTANEOUS VT, BG 539 ml
[2021-09-28 14:23] LABS: CALCIUM, TOTAL 7.1 mg/dL (8.8-10.5); CREATININE 2.95 mg/dL (0.60-1.30); POTASSIUM 4.2 mmol/L (3.5-5.1)
[2021-09-28 14:27] LABS: ABG CARBOXYHEMOGLOBIN 1.3 % (0.0-1.5); ABG HCO3 18.7 mmol/L (22.0-26.0); ABG METHEMOGLOBIN 0.3 % (0.0-1.5); ABG OXYGEN CONTENT 12.3 mL/dL (15.0-23.0); ABG OXYGEN SATURATION 98.9 % (95.0-98.0); ABG OXYHEMOGLOBIN 97.3 % (94.0-100.0); ABG PCO2 66 mmHg (35-45); ABG TOTAL HEMOGLOBIN 8.6 G/dL (12.0-18.0); PO2, ARTERIAL BG 196.5 mmHg (79.0-87.0); SOURCE, BLOOD GAS ARTERIAL
[2021-09-28 14:28] LABS: ABG PH 7.142 (7.35-7.450); O2 DEVICE,BLOOD GAS OTHER (ROOM AIR); SITE, BLOOD GAS RT BRACHIAL
[2021-09-28] MEDS: NOREPINEPHRINE 4 MG/D5%-WATER 250 ML IV PRN (15:29)
[2021-09-28 18:10] LABS: CREATININE 3.08 mg/dL (0.60-1.30); POTASSIUM 4.2 mmol/L (3.5-5.1)
[2021-09-28 19:41] LABS: GLUCOMETER DEV NAME(LOC) AHU.; GLUCOSE,POINT OF CARE 101 MG/DL (70-110)
[2021-09-28] MEDS: ATORVASTATIN CALCIUM 40 MG TABLET PO SCH (21:12)
[2021-09-28 21:41] LABS: CALCIUM, TOTAL 6.9 mg/dL (8.8-10.5); CREATININE 2.97 mg/dL (0.60-1.30); POTASSIUM 4.3 mmol/L (3.5-5.1)
[2021-09-28 21:56] LABS: GLUCOMETER DEV NAME(LOC) AHU.; GLUCOSE,POINT OF CARE 136 MG/DL (70-110)
[2021-09-29] MEDS: INSULIN LISPRO 100 UNITS/ML SQ PRN ×5 (01:31→23:43)
[2021-09-29] MEDS: NOREPINEPHRINE 4 MG/D5%-WATER 250 ML IV PRN ×2 (01:36→12:14)
[2021-09-29 02:00] VITALS: BP 137/42
[2021-09-29 02:43] LABS: OCCULT BLOOD,GASTRIC FLUID POSITIVE (NEGATIVE)
[2021-09-29 05:49] LABS: CREATININE 3.22 mg/dL (0.60-1.30); MAGNESIUM 2.4 mg/dL (1.80-2.40); PHOSPHORUS 3.2 mg/dL (2.5-4.9); POTASSIUM 4.7 mmol/L (3.5-5.1)
[2021-09-29 06:00] VITALS: BP 123/52
[2021-09-29] MEDS: PANTOPRAZOLE SODIUM 80 MG in SODIUM CHLORIDE 0.9% 100 ML IV SCH (07:54)
[2021-09-29] MEDS: VITAMIN B COMPLEX WITH C TABLET PO SCH (07:55)
[2021-09-29] MEDS: HYDROCORTISONE SOD SUCC 100 MG/2 ML VIAL IVP SCH ×2 (07:55→17:22)
[2021-09-29] MEDS: INSULIN GLARGINE,HUM.REC.ANLOG 100 UNITS/ML SQ SCH ×2 (07:56→20:19)
[2021-09-29 10:00] VITALS: BP 117/60
[2021-09-29 10:01] LABS: GLUCOMETER DEV NAME(LOC) AHU.; GLUCOSE,POINT OF CARE 237 MG/DL (70-110)
[2021-09-29] MEDS: MEROPENEM 1 GM in SODIUM CHLORIDE 0.9% 100 ML IV SCH ×2 (10:16→23:44)
[2021-09-29] MEDS ORDERED: REMDESIVIR 200 MG in SODIUM CHLORIDE 0.9% 250 ML IV ONE (11:00)
[2021-09-29] MEDS ORDERED: SODIUM CHLORIDE 0.9% 500 ML IV ONE (11:04)
[2021-09-29 12:21] LABS: GLUCOMETER DEV NAME(LOC) AHU.; GLUCOSE,POINT OF CARE 239 MG/DL (70-110)
[2021-09-29 14:00] VITALS: BP 90/48
[2021-09-29] MEDS: PANTOPRAZOLE SODIUM 40 MG/VIAL IVP SCH ×2 (15:39→20:06)
[2021-09-29 15:47] LABS: BASOPHILS % (AUTO) 0.2 % (0.0-2.0); EOSINOPHILS % (AUTO) 0.5 % (1.0-6.0); HEMATOCRIT 25.2 % (41-53); HEMOGLOBIN 8.2 g/dL (13.5-17.5); LYMPHOCYTES % (AUTO) 2.6 % (22.0-44.0); MEAN CORPUSCULAR HEMOGLOBIN 31.5 pg (26.0-34.0); MEAN CORPUSCULAR HGB CONC 32.6 G/dL (31.0-37.0); MEAN CORPUSCULAR VOLUME 97 fL (80-100); MONOCYTES % (AUTO) 5.2 % (2.0-9.0); PLATELET COUNT (AUTO) 140 K/uL (150-450); RED BLOOD CELL COUNT(AUTO) 2.61 MIL/uL (4.50-5.90); RED CELL DISTRIBUTION WIDTH 14.7 % (11.5-14.5)
[2021-09-29 15:58] LABS: CREATININE 3.31 mg/dL (0.60-1.30); POTASSIUM 4.9 mmol/L (3.5-5.1)
[2021-09-29 16:16] LABS: NEUTROPHILS % (AUTO) 91.5 % (40.0-70.0)
[2021-09-29] MEDS ORDERED: SODIUM CHLORIDE 0.9% 250 ML IV ONE (17:19)
[2021-09-29] MEDS: LEVOFLOXACIN 750 MG/D5% WATER 150 ML IV SCH (17:21)
[2021-09-29 18:00] VITALS: BP 104/54
[2021-09-29 18:36] LABS: GLUCOMETER DEV NAME(LOC) AHU.; GLUCOSE,POINT OF CARE 266 MG/DL (70-110)
[2021-09-29] MEDS: ATORVASTATIN CALCIUM 40 MG TABLET PO SCH (20:05)
[2021-09-29 22:00] VITALS: BP 106/53
[2021-09-30 00:46] LABS: GLUCOMETER DEV NAME(LOC) AHU.; GLUCOSE,POINT OF CARE 241 MG/DL (70-110)
[2021-09-30] MEDS: HYDROCORTISONE SOD SUCC 100 MG/2 ML VIAL IVP SCH ×4 (01:05→23:02)
[2021-09-30 02:00] VITALS: BP 142/85
[2021-09-30] MEDS: NOREPINEPHRINE 4 MG/D5%-WATER 250 ML IV PRN ×2 (04:06→15:38)
[2021-09-30 06:00] VITALS: BP 111/55
[2021-09-30 06:19] LABS: HEMATOCRIT 22.2 % (41-53); HEMOGLOBIN 7.4 g/dL (13.5-17.5); MEAN CORPUSCULAR HGB CONC 33.5 G/dL (31.0-37.0); MEAN CORPUSCULAR VOLUME 96 fL (80-100); PLATELET COUNT (AUTO) 157 K/uL (150-450); RED BLOOD CELL COUNT(AUTO) 2.32 MIL/uL (4.50-5.90); RED CELL DISTRIBUTION WIDTH 14.8 % (11.5-14.5)
[2021-09-30 06:59] LABS: ALBUMIN 1.2 g/dL (3.4-5.0); BILIRUBIN,TOTAL 0.7 mg/dL (0.1-1.0); C-REACTIVE PROTEIN QUANT 18.18 mg/dL (0.00-0.30); CALCIUM, TOTAL 6.8 mg/dL (8.8-10.5); CREATININE 3.56 mg/dL (0.60-1.30); PHOSPHORUS 3.7 mg/dL (2.5-4.9); TOTAL PROTEIN, SERUM 5.5 g/dL (6.4-8.2)
[2021-09-30 07:01] LABS: BAND NEUTROPHILS % (MANUAL) 8 % (0-5); LYMPHOCYTES % (MANUAL) 4 % (22-44); METAMYELOCYTES % 1 % (0-0); MONOCYTES % (MANUAL) 6 % (2-9); SEGMENTED NEUTROPHILS % 81 % (40-70)
[2021-09-30 07:16] LABS: GLUCOMETER DEV NAME(LOC) AHU.; GLUCOSE,POINT OF CARE 238 MG/DL (70-110)
[2021-09-30 08:00] VITALS: BP 116/55
[2021-09-30] MEDS: MEROPENEM 1 GM in SODIUM CHLORIDE 0.9% 100 ML IV SCH (09:05)
[2021-09-30] MEDS: VITAMIN B COMPLEX WITH C TABLET PO SCH (09:06)
[2021-09-30] MEDS: PANTOPRAZOLE SODIUM 40 MG/VIAL IVP SCH ×2 (09:06→20:07)
[2021-09-30] MEDS: INSULIN GLARGINE,HUM.REC.ANLOG 100 UNITS/ML SQ SCH ×2 (09:21→20:18)
[2021-09-30] MEDS: INSULIN LISPRO 100 UNITS/ML SQ PRN ×4 (09:47→20:18)
[2021-09-30] MEDS ORDERED: REMDESIVIR 100 MG in SODIUM CHLORIDE 0.9% 250 ML IV SCH (11:00)
[2021-09-30 13:00] VITALS: BP 133/58
[2021-09-30 16:00] VITALS: BP 100/46
[2021-09-30 20:00] VITALS: BP 120/48
[2021-09-30] MEDS: ATORVASTATIN CALCIUM 40 MG TABLET PO SCH (20:07)
[2021-09-30 20:36] LABS: GLUCOSE,POINT OF CARE 247 MG/DL (70-110)
[2021-09-30 20:36] LABS: GLUCOSE,POINT OF CARE 209 MG/DL (70-110)
[2021-09-30 20:36] LABS: GLUCOSE,POINT OF CARE 180 MG/DL (70-110)
[2021-09-30 22:01] LABS: GLUCOMETER DEV NAME(LOC) AHU.; GLUCOSE,POINT OF CARE 143 MG/DL (70-110)
[2021-09-30] MEDS: MEROPENEM 500 MG in SODIUM CHLORIDE 0.9% 50 ML IV SCH (23:05)
[2021-10-01] VITALS: BP 118/49
[2021-10-01 04:00] VITALS: BP 127/55
[2021-10-01 05:16] LABS: ALBUMIN 1.2 g/dL (3.4-5.0); BILIRUBIN,TOTAL 0.8 mg/dL (0.1-1.0); CALCIUM, TOTAL 6.7 mg/dL (8.8-10.5); CREATININE 3.91 mg/dL (0.60-1.30); POTASSIUM 5.5 mmol/L (3.5-5.1)
[2021-10-01] MEDS: NOREPINEPHRINE 4 MG/D5%-WATER 250 ML IV PRN (06:54)
[2021-10-01 07:36] LABS: GLUCOMETER DEV NAME(LOC) AHU.; GLUCOSE,POINT OF CARE 115 MG/DL (70-110)
[2021-10-01 07:36] LABS: GLUCOMETER DEV NAME(LOC) AHU.; GLUCOSE,POINT OF CARE 117 MG/DL (70-110)
[2021-10-01] MEDS: VITAMIN B COMPLEX WITH C TABLET PO SCH (07:46)
[2021-10-01] MEDS: PANTOPRAZOLE SODIUM 40 MG/VIAL IVP SCH ×2 (07:46→20:59)
[2021-10-01] MEDS: HYDROCORTISONE SOD SUCC 100 MG/2 ML VIAL IVP SCH ×2 (07:46→17:11)
[2021-10-01 08:00] VITALS: BP 119/53
[2021-10-01] MEDS: INSULIN GLARGINE,HUM.REC.ANLOG 100 UNITS/ML SQ SCH ×2 (08:00→21:27)
[2021-10-01] MEDS: MEROPENEM 500 MG in SODIUM CHLORIDE 0.9% 50 ML IV SCH ×2 (10:21→21:04)
[2021-10-01 12:00] VITALS: BP 118/54
[2021-10-01 12:55] LABS: GLUCOMETER DEV NAME(LOC) AHU.; GLUCOSE,POINT OF CARE 167 MG/DL (70-110)
[2021-10-01] MEDS: INSULIN LISPRO 100 UNITS/ML SQ PRN ×3 (13:09→21:25)
[2021-10-01 15:06] LABS: LEGIONELLA PNEUMO AG URINE Negative (Negative); S PNEUMO SOURCE Urine; STREP PNEUMONIAE AG URINE Negative (Negative)
[2021-10-01 15:06] LABS: LEGIONELLA PNEUMO AG URINE Negative (Negative); S PNEUMO SOURCE Urine; STREP PNEUMONIAE AG URINE Negative (Negative)
[2021-10-01 16:00] VITALS: BP 135/57
[2021-10-01] MEDS: LEVOFLOXACIN 500 MG/D5% WATER 100 ML IV SCH (17:16)
[2021-10-01] MEDS ORDERED: SODIUM CHLORIDE 0.9% 250 ML IV ONE (17:22)
[2021-10-01 20:00] VITALS: BP 112/48
[2021-10-01] MEDS: ATORVASTATIN CALCIUM 40 MG TABLET PO SCH (20:59)
[2021-10-01 21:26] LABS: GLUCOMETER DEV NAME(LOC) AHU.; GLUCOSE,POINT OF CARE 170 MG/DL (70-110)
[2021-10-01 22:11] LABS: GLUCOMETER DEV NAME(LOC) AHU.; GLUCOSE,POINT OF CARE 168 MG/DL (70-110)
[2021-10-02] VITALS: BP 99/46
[2021-10-02] MEDS: HYDROCORTISONE SOD SUCC 100 MG/2 ML VIAL IVP SCH ×4 (00:24→23:41)
[2021-10-02 04:00] VITALS: BP 102/49
[2021-10-02 05:01] LABS: GLUCOSE,POINT OF CARE 145 MG/DL (70-110)
[2021-10-02 08:00] VITALS: BP 98/45
[2021-10-02] MEDS: PANTOPRAZOLE SODIUM 40 MG/VIAL IVP SCH ×2 (10:28→20:06)
[2021-10-02] MEDS: VITAMIN B COMPLEX WITH C TABLET PO SCH (10:29)
[2021-10-02] MEDS: INSULIN GLARGINE,HUM.REC.ANLOG 100 UNITS/ML SQ SCH ×2 (10:31→20:35)
[2021-10-02] MEDS: MEROPENEM 500 MG in SODIUM CHLORIDE 0.9% 50 ML IV SCH ×2 (11:06→20:07)
[2021-10-02 12:00] VITALS: BP 117/45
[2021-10-02 16:00] VITALS: BP 118/46
[2021-10-02 20:00] VITALS: BP 116/48
[2021-10-02] MEDS: ATORVASTATIN CALCIUM 40 MG TABLET PO SCH (20:06)
[2021-10-02] MEDS: INSULIN LISPRO 100 UNITS/ML SQ PRN (20:34)
[2021-10-02 20:46] LABS: GLUCOMETER DEV NAME(LOC) AHU.; GLUCOSE,POINT OF CARE 164 MG/DL (70-110)
[2021-10-03] VITALS: BP 122/50
[2021-10-03 04:00] VITALS: BP 134/55
[2021-10-03 04:31] LABS: GLUCOMETER DEV NAME(LOC) AHU.; GLUCOSE,POINT OF CARE 148 MG/DL (70-110)
[2021-10-03 08:00] VITALS: BP 130/50
[2021-10-03] MEDS: HYDROCORTISONE SOD SUCC 100 MG/2 ML VIAL IVP SCH ×2 (08:00→15:35)
[2021-10-03] MEDS: INSULIN GLARGINE,HUM.REC.ANLOG 100 UNITS/ML SQ SCH (09:00)
[2021-10-03] MEDS: PANTOPRAZOLE SODIUM 40 MG/VIAL IVP SCH (09:00)
[2021-10-03] MEDS: VITAMIN B COMPLEX WITH C TABLET PO SCH (09:00)
[2021-10-03] MEDS: MEROPENEM 500 MG in SODIUM CHLORIDE 0.9% 50 ML IV SCH (10:00)
[2021-10-03 12:00] VITALS: BP 125/50
[2021-10-03 13:25] LABS: CYTOMEGALOVIRUS PCR Positive < 200 IU/mL (Negative)
[2021-10-03 16:00] VITALS: BP 120/50
[2021-10-03] MEDS: LEVOFLOXACIN 500 MG/D5% WATER 100 ML IV SCH (18:00)
== END 2021-10-03 18:57 | DRG 870 ==
LOC: EMS 16:58 → UNDOADMIN 09-25 11:38 → ICUN 09-25 11:38 → UNDODISIN 10-01 18:57
PROVIDERS: ADMIT Internal Medicine; ATTEND Internal Medicine
PROC: 5A0935A Assistance with Respiratory Ventilation, Less than 24 Consecutive Hours, High Flow/Velocity Cannula (ICD-10-PCS; 2021-09-25)
PROC: 5A0935A Assistance with Respiratory Ventilation, Less than 24 Consecutive Hours, High Flow/Velocity Cannula (ICD-10-PCS; 2021-09-26)
PROC: 0BH17EZ Insertion of Endotracheal Airway into Trachea, Via Natural or Artificial Opening (ICD-10-PCS; 2021-09-27)
PROC: 5A1935Z Respiratory Ventilation, Less than 24 Consecutive Hours (ICD-10-PCS; 2021-09-27)
PROC: 5A1955Z Respiratory Ventilation, Greater than 96 Consecutive Hours (ICD-10-PCS; principal; 2021-09-28)
PROC: XW033E5 Introduction of Remdesivir Anti-infective into Peripheral Vein, Percutaneous Approach, New Technology Group 5 (ICD-10-PCS; 2021-09-29)
DX: A41.2 Sepsis due to unspecified staphylococcus (principal); U07.1 COVID-19; J12.82 Pneumonia due to coronavirus disease 2019; E11.10 Type 2 diabetes mellitus with ketoacidosis without coma; I21.4 Non-ST elevation (NSTEMI) myocardial infarction; J96.01 Acute respiratory failure with hypoxia; N18.6 End stage renal disease; D84.9 Immunodeficiency, unspecified; E87.1 Hypo-osmolality and hyponatremia; I12.0 Hypertensive chronic kidney disease with stage 5 chronic kidney disease or end stage renal disease; I48.92 Unspecified atrial flutter; N17.9 Acute kidney failure, unspecified; T86.19 Other complication of kidney transplant; G93.1 Anoxic brain damage, not elsewhere classified; K92.2 Gastrointestinal hemorrhage, unspecified; Z99.11 Dependence on respirator [ventilator] status; R65.20 Severe sepsis without septic shock; I46.9 Cardiac arrest, cause unspecified; D64.9 Anemia, unspecified; E11.22 Type 2 diabetes mellitus with diabetic chronic kidney disease; E78.5 Hyperlipidemia, unspecified; E83.39 Other disorders of phosphorus metabolism; E86.9 Volume depletion, unspecified; E87.5 Hyperkalemia; K52.9 Noninfective gastroenteritis and colitis, unspecified; Y83.0 Surgical operation with transplant of whole organ as the cause of abnormal reaction of the patient, or of later complication, without mention of misadventure at the time of the procedure; B95.8 Unspecified staphylococcus as the cause of diseases classified elsewhere; B96.89 Other specified bacterial agents as the cause of diseases classified elsewhere; H54.8 Legal blindness, as defined in USA; H57.02 Anisocoria; E11.21 Type 2 diabetes mellitus with diabetic nephropathy; Z88.8 Allergy status to other drugs, medicaments and biological substances; Z79.4 Long term (current) use of insulin; Z89.422 Acquired absence of other left toe(s); Z82.49 Family history of ischemic heart disease and other diseases of the circulatory system; Z83.3 Family history of diabetes mellitus; Z88.2 Allergy status to sulfonamides; Z91.19 Patient's noncompliance with other medical treatment and regimen
CPT/HCPCS: 36600; 51702; 70450; 70460; 71045; 71250; 72192; 74150; 76776; 78606; 80048; 80053; 80197; 80202; 81001; 82009; 82271; 82550; 82728; 82805; 82948; 82962; 83036; 83605; 83615; 83735; 83880; 84100; 84145; 84443; 84484; 85018; 85025; 85379; 86140; 86738; 86850; 86900; 86901; 87040; 87077; 87081; 87086; 87205; 87449; 87496; 87497; 87899; 92950; 93005; 93306; 94003; 94640; 99291; 99292; A9521; C9113; G0378; J0330; J0610; J1644; J1720; J1815; J1956; J2185; J2250; J2354; J2370; J2543; J3370; J3480; J3490; J7030; J7040; J7050; J7060; J7120; Q9967; 36415-L1; 36415-TC; 82803-TC; U0003; X7700